=== PATIENT | female | born 1950 | race Caucasian/White ===

== ENCOUNTER 2018-05-25 08:02 | Inpatient (IN) | payer MEDICARE ==
--- NOTE | 2018-05-18 16:26 | HP ---
HISTORY AND PHYSICAL: DATE OF ADMISSION/PROCEDURE: 05/25/18 PROVIDER: Dr. Radha Bai.* (DICTATED BY JOIE OSMAN) HISTORY OF PRESENT ILLNESS: Ms. Aparicio is a 67-year-old female with bilateral hip pain, left greater than right, over the past 6 months. She had a fall in March and reports that since then the pain has been giving her 8/10 pain. She does have rheumatoid arthritis and lupus. She has pain with prolonged standing and walking more than a block. She has failed conservative management with Tylenol, antiinflammatories, and is currently taking hydroxyquinoline, methotrexate, and Prolia. She would like to pursue a left total hip arthroplasty on 05/25/[address] Radha Bai. PAST MEDICAL HISTORY: 1. Rheumatoid arthritis. 2. Lupus. 3. Hypothyroidism. 4. Hypertension. 5. Osteoarthritis. 6. Anemia. 7. Depression. 8. Anxiety. 9. Sleep apnea. PAST SURGICAL HISTORY: Partial thyroidectomy. MEDICATIONS: 1. . 2. Methotrexate 2.5 mg. 3. Multivitamin. 4. Diltiazem CD 300 mg. 5. Levothyroxine sodium 150 mcg. 6. Losartan potassium 50 mg. 7. Ropinirole 1 mg. 8. Xanax 0.5 mg. 9. Calcarb 600 with Vitamin D 400. 10. ASA 81 mg. 11. Viibryd 20 mg. 12. Vitamin D tablet 2000 units. 13. Prolia 60 mg/mL. 14. Folic acid 400 mcg. 15. Bupropion 300 mg. 16. Trazodone 50 mg. 17. Omeprazole 40 mg. ALLERGIES: PENICILLIN causes hives. FAMILY HISTORY: Maternal side heart disease, rheumatoid arthritis. Paternal side heart disease and hypertension. SOCIAL HISTORY: The patient lives with her . 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 Denies any tobacco, alcohol, or recreational drug use. She is right-hand dominant. REVIEW OF SYSTEMS: General: The patient denies any fevers, chills, or night sweats. No known anesthesia problems. HEENT: The patient denies any headaches , lightheadedness, or syncopal episodes. Cardiothoracic: The patient denies any chest pain, heart palpitations, or edema. Pulmonary: The patient denies any shortness of breath with exertion or chronic cough. GI: The patient denies any nausea, vomiting, diarrhea, or constipation. : The patient denies any nocturia, urinary frequency, or urgency. MSK: The patient admits to some mild muscle spasms. Denies any chronic or intermittent back pain or fractures. Neuro: She did admit to numbness and tingling intermittently in the toes. The patient denies any paresthesias, seizures, or stroke. Integument : The patient denies any abrasions, lesions, lumps, or open sores. Endocrine: The patient admits to hypothyroidism. PHYSICAL EXAMINATION GENERAL: The patient is alert and oriented x3, appropriate mood and affect, appropriate dress and hygiene, in no acute distress. HEENT: Normocephalic, atraumatic. Hearing and vision are grossly intact. PULMONARY: Lungs are clear to auscultation bilaterally with no wheezes, rales, or rhonchi. CARDIO: Regular rate and rhythm. Normal S1 and S2. No appreciable S3 or S4. No murmurs, rubs, or gallops. MUSCULOSKELETAL: Left lower extremity: Left hip inspection, left hip reveals no erythema or ecchymosis. Skin is warm, dry, and intact. Range of motion of the hip is 100 degrees of flexion with pain, 10 degrees of external rotation with pain, and 0 degrees of internal rotation with pain. She has negative log roll, negative straight-leg raise. She has some slight tenderness to palpation along the greater trochanter. She has 5/5 strength with dorsiflexion and plantar flexion. She is neurovascularly intact distally with 2+ dorsalis pedis pulse. IMPRESSION: Left hip osteoarthritis, end stage. PLAN: To the OR for a left total hip arthroplasty to be performed on 05/25/[address] Radha Bai. The patient will return in 10 to 14 days postoperatively for suture removal and followup. The risks and complications of surgery were reviewed with the patient and she understood these. In addition, the patient will hold her methotrexate for 2 weeks on both sides of the surgery and will continue on throughout the surgery according to the non acoustic operator. This was reviewed with her again today and she voiced understanding of it. JOIE OSMAN [id number]/[facility] #: [id number] [facility] CENTERAngelo
[~2018-05-25 08:02] MED LIST: Buffered Lidocaine 0.9% SYRIN* 5 ML/SYR SYRINGE INTRADERM ONE; Lactated Ringers 1000 ML Bag* 1,000 ML IV SCH
--- OUTSIDE RECORDS SUMMARY | 2018-05-25 08:06 | XMS REPORT | Continuity of Care Document ---
:1950 External Reference #:[id number] Author Name Zack Yan Care Team Providers Name Role Phone Angy Hirsch MD Primary Care Physician Unavailable Payers Type Date Identification Numbers Payment Provider Subscriber Policy Number: [id number] Medicare Krista Aparicio PayID: [id number] [address] [place] [address] Effective: 2015 Policy Number: [facility] Krista Aparicio [id number] PayID: [id number] [address] [place] [address] Expires: 2015 Policy Number: [id number] [facility] Jeremy Aparicio PayID: [id number] [address] [address] [place] [address] Advance Directives Description No Information Available Problems Date Description Provider Status Onset: 02/16/2012 Systemic lupus erythematosus Vin Sanchez M.D. Active Onset: 02/16/2012 Medications Mcfp (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 Vin Sanchez M.D. Active Encounter Onset: 02/16/2012 Leukopenia Vin Sanchez M.D. Active Onset: 02/16/2012 Multiple joint pain Vin Sanchez M.D. 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 ETOH Use Denies alcohol use Tobacco Use Start: Unknown Patient has never smoked Smoking Status Reviewed: 05/14/18 Patient has never smoked Exercise Type/Frequency Exercises sporadically Allergies, Adverse Reactions, Alerts Date Description Reaction Status Severity Comments 08/04/2010 Penicillin Urticaria Active Severe Medications Medication Date Status Form Strength Qnty SIG Indications Ordering Provider Hydroxychloroquine 08/19/ Active Tablets 200mg 180tab take one M32.9 Zsofia Sulfate 2016 s tablet Johnny, 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 Diltiazem CD Active Caps ER 300 90caps 1 by mouth Unknown 24HR mg once daily Levothyroxine Active Tablets 150 30tabs 1 po qd Unknown Sodium mcg Losartan Active Tablets 50m 90tabs 1-2 po qd Unknown Potassium g Ropinirole HCL Active Tablets 1mg 30tabs 4 tab po Unknown qhs Xanax Active Tablets 0.5 20tabs 1 po tid Unknown mg prn Calcarb 600/D Active Tablets 600 60tabs take 1 M85 Unknown -40 tablet by .9 0mg mouth two -Un times daily it Asa Active 81m 30units 1 po qd Unknown g Vibryd Active 20m 1 tablet Unknown g daily Vitamin D Active Capsules 200 30caps 1 by mouth Unknown 0Un every day it Prolia Active Solution 60m 60 mg sc Unknown g/m q6mon l Folic Acid Active Tablets 400 2 tablets Z79 Unknown mcg by mouth .89 every day 9 (supplement ) Bupropion HCL ER Active Tablets ER 300 Macadam, (XL) 24HR mg Angy Goss MD Trazodone HCL Active Tablets 50m 25mg at Unknown g night--1/2 tab or more as needed Omeprazole Active Capsules DR 40m 1 by mouth Unknown g every day Nabumetone 05/15/2017 - Hx Tablets 500 1 by mouth Z79 Zsofia 05/15/2017 mg twice a day .89 ADRIANA Turner 9 Nabumetone 05/15/2017 - Hx Tablets 500 1 by mouth Z79 Zsofia 08/10/2017 mg daily .89 ADRIANA Turner 9 Nabumetone 05/21/2015 - Hx Tablets 750 60tabs take one Z79 Zsofia 05/15/2017 mg tablet by .89 ADRIANA Turner mouth twice 9 a day as needed Nabumetone 02/19/2015 - Hx Tablets 750 30tabs take one Z79 Zsofia 05/21/2015 mg tablet by .89 ADRIANA Turner mouth once 9 a day Folic Acid 05/24/2013 - Hx Tablets 1[facility]tabs [facility]2016 mouth every .89 ADRIANA Turner day 9 Voltaren 09/28/2010 - Hx Gel 1% 5tubes apply to M05 [facility] 08/20/2015 affected .79 ADRIANA Turner area four times a day as needed(not using) Methotrexate 08/04/2010 - Hx Tablets 2.5 30tabs 6 tabs 1x 710 Zsofia 03/11/2014 mg per week .0 ADRIANA Turner 714.0 V58.69 Nabumetone 08/04/2010 - Hx Tablets 750mg 60tabs 1 by mouth 715.16 Krishna Johnny, 02/19/2015 twice a day ADRIANA V58.69 714.0 Plaquenil 08/04/2010 - Hx Tablets 200mg 60tabs take one M32.9 Krishna Johnny, 08/20/2015 tablet by ADRIANA mouth twice a day Z79.899 M05.79 Effexor XR - Hx Caps ER 24HR 150mg 90caps 1 po qd Unknown 02/16/2012 Seroquel - Hx Tablets 100mg 30tabs 1 po qd Unknown 02/19/2015 Iron - Hx Tablets 40mg po qd Unknown 02/25/2016 Glucosamine - Hx Capsules po bid Unknown Chondroitin 04/23/2018 Complex Fosamax - Hx Tablets 70mg 12tabs one tablet Unknown 09/09/2013 weekly Forteo - Hx Solution 600mcg/2.4 3mon 20 mcg sc Unknown 08/20/2015 ML every day Quetiapine - Hx Tablets 100mg 1/2 tablet Unknown Fumarate 11/13/2017 by mouth at bedtime Protein - Hx daily Unknown 08/11/2016 Immunizations Description No Information Available Vital Signs Date Vital Result Comment 05/14/2018 9:45am Height 65 inches 5'5" Weight 169.00 lb Heart Rate 68 /min BP Systolic 124 mmHg BP Diastolic 76 mmHg BMI (Body Mass Index) 28.1 kg/m2 04/30/2018 1:50pm Height 65 inches 5'5" Weight 168.00 lb Heart Rate 64 /min BP Systolic 114 mmHg BP Diastolic 70 mmHg Body Temperature 98.9 F Pain Level 8 BMI (Body Mass Index) 28.0 kg/m2 04/23/2018 9:11am Height 65 inches 5'5" Weight 170.00 lb Heart Rate 69 /min BP Systolic 122 mmHg BP Diastolic 78 mmHg Pain Level 8 O2 % BldC Oximetry 97 % BMI (Body Mass Index) 28.3 kg/m2 02/22/2018 8:53am Height 65 inches 5'5" Weight 167.00 lb Heart Rate 81 /min BP Systolic Sitting 132 mmHg BP Diastolic Sitting 80 mmHg O2 % BldC Oximetry 98 % BMI (Body Mass Index) 27.8 kg/m2 11/13/2017 10:25am Height 65 inches 5'5" Weight 165.00 lb Heart Rate 68 /min BP Systolic 118 mmHg BP Diastolic 74 mmHg Pain Level 6 O2 % BldC Oximetry 95 % BMI (Body Mass Index) 27.5 kg/m2 08/10/2017 10:00am Weight 165.00 lb Heart Rate 81 /min BP Systolic Sitting 121 mmHg BP Diastolic Sitting 71 mmHg Body Temperature 98.6 F Pain Level 7 lower back O2 % BldC Oximetry 96 % 05/15/2017 8:49am Weight 164.00 lb Heart Rate 68 /min BP Systolic Sitting 128 mmHg BP Diastolic Sitting 70 mmHg Respiratory Rate 14 /min Pain Level 5 02/20/2017 9:22am Weight 162.00 lb Heart Rate 66 /min BP Systolic Sitting 108 mmHg BP Diastolic Sitting 58 mmHg Pain Level 6 O2 % BldC Oximetry 95 % 11/17/2016 9:50am Weight 164.00 lb Heart Rate 63 /min BP Systolic 110 mmHg BP Diastolic 60 mmHg O2 % BldC Oximetry 98 % 08/11/2016 9:47am Weight 164.00 lb Heart Rate 74 /min BP Systolic Sitting 126 mmHg BP Diastolic Sitting 78 mmHg Respiratory Rate 15 /min Pain Level 5 O2 % BldC Oximetry 98 % 05/09/2016 9:29am Weight 166.00 lb Heart Rate 71 /min BP Systolic Sitting 142 mmHg BP Diastolic Sitting 78 mmHg Pain Level 2 hands O2 % BldC Oximetry 98 % 02/25/2016 10:39am Height 65 inches 5'5" Weight 168.00 lb Heart Rate 62 /min BP Systolic Sitting 120 mmHg BP Diastolic Sitting 70 mmHg Pain Level 5 BMI (Body Mass Index) 28.0 kg/m2 11/23/2015 9:22am Height 65 inches 5'5" Weight 163.00 lb Heart Rate 76 /min BP Systolic Sitting 138 mmHg BP Diastolic Sitting 82 mmHg Pain Level 5 hands BMI (Body Mass Index) 27.1 kg/m2 08/20/2015 10:34am Height 65 inches 5'5" Weight 166.00 lb Heart Rate 63 /min BP Systolic 106 mmHg BP Diastolic 60 mmHg Body Temperature 97.8 F O2 % BldC Oximetry 97 % BMI (Body Mass Index) 27.6 kg/m2 05/21/2015 10:40am Height 65 inches 5'5" Weight 167.12 lb Heart Rate 82 /min Respiratory Rate 14 /min Body Temperature 97.9 F Pain Level 5 BMI (Body Mass Index) 27.8 kg/m2 02/19/2015 9:20am Height 65 inches 5'5" Weight 164.12 lb Heart Rate 80 /min BP Systolic Sitting 130 mmHg BP Diastolic Sitting 90 mmHg Respiratory Rate 14 /min Pain Level 4 BMI (Body Mass Index) 27.3 kg/m2 11/18/2014 10:16am Height 65 inches 5'5" Weight 162.50 lb Heart Rate 72 /min BP Systolic Sitting 140 mmHg BP Diastolic Sitting 90 mmHg Respiratory Rate 14 /min Pain Level 4 BMI (Body Mass Index) 27.0 kg/m2 08/18/2014 9:51am Height 65 inches 5'5" Weight 162.00 lb Heart Rate 72 /min BP Systolic Sitting 148 mmHg BP Diastolic Sitting 80 mmHg Pain Level 2 BMI (Body Mass Index) 27.0 kg/m2 06/12/2014 9:51am Height 65 inches 5'5" Weight 163.75 lb Heart Rate 78 /min BP Systolic Sitting 112 mmHg BP Diastolic Sitting 70 mmHg Pain Level 2 BMI (Body Mass Index) 27.2 kg/m2 03/11/2014 9:22am Height 65 inches 5'5" Weight 162.00 lb Heart Rate 86 /min BP Systolic Sitting 120 mmHg BP Diastolic Sitting 70 mmHg Pain Level 4 BMI (Body Mass Index) 27.0 kg/m2 12/09/2013 9:25am Height 65 inches 5'5" Weight 167.50 lb Heart Rate 82 /min BP Systolic Sitting 112 mmHg BP Diastolic Sitting 64 mmHg Pain Level 2 BMI (Body Mass Index) 27.9 kg/m2 09/09/2013 10:37am Height 65 inches 5'5" Weight 164.25 lb Heart Rate 86 /min BP Systolic Sitting 100 mmHg BP Diastolic Sitting 68 mmHg BMI (Body Mass Index) 27.3 kg/m2 05/24/2013 10:50am Height 65 inches 5'5" Weight 164.25 lb Heart Rate 78 /min BP Systolic Sitting 118 mmHg BP Diastolic Sitting 76 mmHg BMI (Body Mass Index) 27.3 kg/m2 02/22/2013 1:06pm Height 65 inches 5'5" Weight 167.00 lb Heart Rate 77 /min BP Systolic Sitting 110 mmHg BP Diastolic Sitting 62 mmHg BMI (Body Mass Index) 27.8 kg/m2 11/21/2012 2:46pm Height 65 inches 5'5" Weight 160.00 lb Heart Rate 81 /min BP Systolic Sitting 117 mmHg BP Diastolic Sitting 66 mmHg BMI (Body Mass Index) 26.6 kg/m2 08/17/2012 8:55am Height 65 inches 5'5" Weight 158.00 lb Heart Rate 74 /min BP Systolic Sitting 127 mmHg BP Diastolic Sitting 72 mmHg BMI (Body Mass Index) 26.3 kg/m2 05/17/2012 9:12am Height 65 inches 5'5" Weight 160.00 lb Heart Rate 74 /min BP Systolic Sitting 126 mmHg BP Diastolic Sitting 67 mmHg BMI (Body Mass Index) 26.6 kg/m2 02/16/2012 9:34am Height 65 inches 5'5" Weight 162.00 lb Heart Rate 78 /min BP Systolic Sitting 126 mmHg BP Diastolic Sitting 78 mmHg BMI (Body Mass Index) 27.0 kg/m2 11/29/2011 10:16am Height 65 inches 5'5" Weight 160.00 lb Heart Rate 79 /min BP Systolic Sitting 124 mmHg BP Diastolic Sitting 71 mmHg BMI (Body Mass Index) 26.6 kg/m2 09/16/2011 11:21am Height 65 inches 5'5" Heart Rate 76 /min BP Systolic Sitting 120 mmHg BP Diastolic Sitting 71 mmHg 07/06/2011 11:00am Height 65 inches 5'5" Weight 167.00 lb Heart Rate 78 /min BP Systolic Sitting 128 mmHg BP Diastolic Sitting 82 mmHg BMI (Body Mass Index) 27.8 kg/m2 04/22/2011 1:26pm Weight 167.00 lb Heart Rate 68 /min BP Systolic Sitting 115 mmHg BP Diastolic Sitting 65 mmHg 02/03/2011 9:29am Weight 163.00 lb Heart Rate 80 /min BP Systolic 112 mmHg BP Diastolic 74 mmHg 11/25/2010 9:15am Weight 164.00 lb Heart Rate 78 /min BP Systolic 128 mmHg BP Diastolic 80 mmHg 09/28/2010 11:03am Height 65.5 inches 5'5.50" Weight 166.00 lb Heart Rate 68 /min BP Systolic 120 mmHg BP Diastolic 76 mmHg BMI (Body Mass Index) 27.2 kg/m2 08/04/2010 2:16pm Height 65.5 inches 5'5.50" Weight 165.00 lb Heart Rate 80 /min BP Systolic 108 mmHg BP Diastolic 70 mmHg BMI (Body Mass Index) 27.0 kg/m2 Results Description No Information Available Procedures Description No Information Available Encounters Type Date Location Provider Dx Diagnosis Office Visit 04/30/2018 Orthopedic Services Radha Bai, M05.79 Rheu arthritis w 1:30p Of [facility] rheu factor mult site w/o org/sys involv M32.9 Systemic lupus erythematosus, unspecified M25.552 Pain in left hip M16.12 Unilateral primary osteoarthritis, left hip M25.551 Pain in right hip Office Visit 04/23/2018 9:30a Rheumatology Krishna Turner, M05.79 Rheu arthritis Services [facility] w rheu factor mult site w/o org/sys involv M32.9 Systemic lupus erythematosus, unspecified M35.00 Sicca syndrome, unspecified F41.9 Anxiety disorder, unspecified Z79.899 Other manager long term care (current) drug therapy M85.9 Disorder of bone density and structure, unspecified M16.0 Bilateral primary osteoarthritis of hip R93.5 Abn findings on dx imaging of abd regions, inc retroperiton Office Visit 02/22/2018 9:00a Rheumatology Zsofia M05.79 Rheu arthritis Services Of [facility] rheu factor [employer] mult site w/o org/sys involv M32.9 Systemic lupus erythematosus, unspecified M35.00 Sicca syndrome, unspecified F41.9 Anxiety disorder, unspecified Z79.899 Other retirement (current) drug therapy Office Visit 11/13/2017 10:30a Rheumatology Zsofia M05.79 Rheu arthritis Services [facility] rheu factor [facility] mult site w/o org/sys involv M32.9 Systemic lupus erythematosus, unspecified M35.00 Sicca syndrome, unspecified M85.9 Disorder of bone density and structure, unspecified Z79.899 Other retirement (current) drug therapy Office Visit 08/10/2017 10:00a Rheumatology Zsofia M05.79 Rheu arthritis Services [facility] rheu factor [facility] mult site w/o org/sys involv M32.9 Systemic lupus erythematosus, unspecified M35.00 Sicca syndrome, unspecified Z79.899 Other retirement (current) drug therapy M85.9 Disorder of bone density and structure, unspecified Z23 Encounter for immunization Office Visit 05/15/2017 9:00a Rheumatology Zsofia M05.79 Rheu arthritis Services [facility] rheu factor [employer] mult site w/o org/sys involv M32.9 Systemic lupus erythematosus, unspecified M35.00 Sicca syndrome, unspecified M85.9 Disorder of bone density and structure, unspecified Z79.899 Other retirement (current) drug therapy Office Visit 02/20/2017 9:30a Rheumatology Zsofia M05.79 Rheu arthritis Services [facility] rheu factor [employer] mult site w/o org/sys involv M32.9 Systemic lupus erythematosus, unspecified M35.00 Sicca syndrome, unspecified M85.9 Disorder of bone density and structure, unspecified Z79.899 Other manager long term care (current) drug therapy F41.9 Anxiety disorder, unspecified Office Visit 11/17/2016 9:30a Rheumatology Zsofia M05.79 Rheu arthritis [facility]o org/sys involv M32.9 Systemic lupus erythematosus, unspecified Z79.899 Other retirement (current) drug therapy M35.00 Sicca syndrome, unspecified Office Visit 08/11/2016 10:00a Rheumatology Zsofia M05.79 Rheu arthritis [facility]/o org/sys involv M32.9 Systemic lupus erythematosus, unspecified M85.9 Disorder of bone density and structure, unspecified Z79.899 Other retirement (current) drug therapy Office Visit 05/09/2016 9:30a Rheumatology Zsofia M05.79 [facility] w/o org/sys involv M32.9 Systemic lupus erythematosus, unspecified M35.00 Sicca syndrome, unspecified M85.9 Disorder of bone density and structure, unspecified Z79.899 Other retirement (current) drug therapy R21 Rash and other nonspecific skin eruption Office Visit 02/25/2016 10:30a Rheumatology Zsofia M05.79 [facility] w/o org/sys involv M32.9 Systemic lupus erythematosus, unspecified M35.00 Sicca syndrome, unspecified M85.9 Disorder of bone density and structure, unspecified Z79.899 Other retirement (current) drug therapy E66.9 Obesity, unspecified Office Visit 11/23/2015 9:30a Rheumatology Zsofia M05.79 Rheu arthritis [facility] w/o org/sys involv M32.9 Systemic lupus erythematosus, unspecified M85.9 Disorder of bone density and structure, unspecified M35.00 Sicca syndrome, unspecified Z79.899 Other retirement (current) drug therapy Office Visit 08/20/2015 10:30a Rheumatology Krishna M05.79 Rheu arthritis Services Of ADRIANA Turner w rheu factor [facility] site w/o org/sys involv M32.9 Systemic lupus erythematosus, unspecified Z79.899 Other retirement (current) drug therapy M85.9 Disorder of bone density and structure, unspecified Office Visit 05/21/2015 10:30a Rheumatology Krishna Turner M05.79 Rheu arthritis Services [facility]o org/sys involv M32.9 Systemic lupus erythematosus, unspecified M85.9 Disorder of bone density and structure, unspecified M35.00 Sicca syndrome, unspecified Z79.899 Other manager long term care (current) drug therapy M85.89 Oth disrd of bone density and structure, multiple sites Office Visit 02/19/2015 9:30a Rheumatology Krishna Turner 714.0 Rheumatoid Services [facility] Arthritis 710.0 Lupus Erythematosus Systemic 733.90 Bone & Cartilage Disorder Unspec V58.69 Medications 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 Office Visit 11/18/2014 10:30a Rheumatology Krishna Turner 714.0 Rheumatoid Services [facility] Arthritis 710.0 Lupus Erythematosus Systemic 715.16 Osteoarthrosis Localized Prim Lower Leg 733.00 Osteoporosis Unspec V58.69 Medications 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 Office Visit 08/18/2014 10:00a Rheumatology Krishna Turner 714.0 Rheumatoid [facility] Arthritis 710.0 Lupus Erythematosus Systemic 715.16 Osteoarthrosis Localized Prim Lower Leg 733.00 Osteoporosis Unspec V58.69 Medications 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 733.00 Osteoporosis Unspec Office Visit 09/09/2013 Rheumatology Zsofia 710.0 Lupus Erythematosus 10:30a Services Of ADRIANA Cisneros Systemic 714.0 Rheumatoid Arthritis V58.69 Medications 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 Office Visit 05/24/2013 Rheumatology Zsofia 710.0 Lupus Erythematosus 11:00a Services Of ADRIANA Cisneros Systemic 714.0 Rheumatoid Arthritis V58.69 Medications 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 443.0 Raynauds Syndrome 288.50 Leukocytopenia, Unspecified Office Visit 02/22/2013 Rheumatology Zsofia 710.0 Lupus Erythematosus 1:00p Services Of ADRIANA Cisneros Systemic 715.16 Osteoarthrosis Localized Prim Lower Leg 288.50 Leukocytopenia, Unspecified 714.0 Rheumatoid Arthritis V58.69 Medications 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 Office Visit 11/21/2012 Rheumatology Zsofia 710.0 Lupus Erythematosus 2:40p Services Of ADRIANA Cisneros Systemic 715.16 Osteoarthrosis Localized Prim Lower Leg V58.69 Medications 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 721.3 Spondylosis Lumbar W/O Myelopathy Office Visit 08/17/2012 Rheumatology Zsofia 710.0 Lupus Erythematosus 9:00a Services Of ADRIANA Cisneros Systemic 715.16 Osteoarthrosis Localized Prim Lower Leg V58.69 Medications Mcfp (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 Encounter Office Visit 05/17/2012 Rheumatology Vin Sanchez, 710.0 Lupus Erythematosus 9:20a Services Of Mica Guerrero Systemic V58.69 Medications 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 Office Visit 02/16/2012 Rheumatology Vin Sanchez, 710.0 Lupus Erythematosus 9:40a Services Of Mica Guerrero Systemic V58.69 Medications 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 288.50 Leukocytopenia, Unspecified 719.49 Pain Joint Multiple Sites Office Visit 11/29/2011 Rheumatology Vin Sanchez, 710.0 Lupus Erythematosus 10:20a Services Of Mica Guerrero Systemic V58.69 Medications 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 Office Visit 09/16/2011 Rheumatology Vin Endo, 710.0 Lupus Erythematosus 11:20a Services Of Mica Guerrero Systemic V58.69 Medications Mcfp (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 Encounter 719.49 Pain Joint Multiple Sites Office Visit 07/06/2011 Rheumatology Vin Endo, 710.0 Lupus Erythematosus 11:00a Services Of Mica Guerrero Systemic V58.69 Medications Mcfp (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 Encounter 814.00 FX Carpal Bone Closed Unspec Office Visit 04/22/2011 Rheumatology Vin Endo, 710.0 Lupus Erythematosus 1:40p Services Of Mica Guerrero Systemic V58.69 Medications Mcfp (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 Encounter 719.49 Pain Joint Multiple Sites Office Visit 02/03/2011 Rheumatology Vin Sanchez, 710.0 Lupus Erythematosus 9:20a Services Of Mica Guerrero Systemic 719.40 Pain Joint Site Unspec Office Visit 11/25/2010 Rheumatology Vin Sanchez, 710.0 Lupus Erythematosus 9:20a Services Of Mica Guerrero Systemic V58.69 Medications 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 719.40 Pain Joint Site Unspec 288.50 Leukocytopenia, Unspecified Office Visit 09/28/2010 Rheumatology Vin Sanchez, 710.0 Lupus Erythematosus 11:00a Services Of Mica Guerrero Systemic 715.16 Osteoarthrosis Localized Prim Lower Leg V58.69 Medications 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 Office Visit 08/04/2010 Rheumatology Vin Endo, 710.0 Lupus Erythematosus 2:00p Services Of Mica Guerrero Systemic V58.69 Medications Mcfp (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 Encounter Plan of Treatment Future Appointment(s):05/25/2018 11:30 am - Radha Bai M.D. at [facility]/26/2018 10:30 am - ADRIANA Long at Rheumatology Services [facility]
--- OUTSIDE RECORDS SUMMARY | 2018-05-25 08:06 | XMS REPORT | Continuity of Care Document ---
:1950 External Reference #:[id number] Author Name Chau Irma Care Team Providers Name Role Phone Angy Hirsch MD Primary Care Physician Unavailable Payers Type Date Identification Numbers Payment Provider Subscriber Policy Number: [id number] Medicare Krista Aparicio PayID: [id number] [address] [place] [address] Effective: 2015 Policy Number: [facility] Krista Aparicio [id number] PayID: [id number] [address] [place] [address] Expires: 2015 Policy Number: [id number] [facility] Jeremy Aparicio PayID: [id number] [address] [address] [place] [address] Advance Directives Description No Information Available Problems Date Description Provider Status Onset: 02/16/2012 Systemic lupus erythematosus Vin Sanchez M.D. Active Onset: 02/16/2012 Medications Residential (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 Vin Sanchez M.D. 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 ETOH Use Denies alcohol use [...] Sulfate 2016 s tablet Johnny, by mouth PROPOSAL EDITOR twice a day Z79.899 M05.79 Methotrexate 03/11/2014 Active Tablets 2.5mg 48tabs 4 tbs by M05.79 Zsofia Johnny, mouth every [employer] week Z79.899 Multivitamins 08/04/2010 Active Tablets 30tabs [...] Hx Tablets 1mg 90tabs 1 tab by Z Zsofia 05/09/2016 mouth every .89 ADRIANA Turner day 9 Voltaren 09/28/2010 - Hx Gel 1% [facility]es [facility] affected .79 ADRIANA Turner area four [...] Hx Tablets 200mg 60tabs take one M32.9 Elijahofimariya Mcphersonk, 08/20/2015 tablet by ADRIANA mouth twice a [...] BMI (Body Mass Index) 27.0 kg/m2 Results Test Date Facility Test Result H/L Range Note Urinalysis Profile 05/14/2018 [facility] [place] [address] [phone] Urine Appearance Clear Urine Specific [place] 1.021 N 1.010-1.030 Urine pH 5.0 N 5-9 Urine Urobilinogen Negative Negative Urine Ketones Negative Negative Urine Protein Negative Negative Urine Leukocytes Negative Negative Urine Blood Negative Negative * * Abnormal Negative 1 Urine Nitrite Negative Negative Urine Bilirubin Negative Negative Urine Glucose Negative Negative Inr/Protime 05/14/2018 [facility] Inr 0.94 N 0.77-1.02 [place] [address] [phone] Laboratory test 05/14/2018 [facility] Partial 32.5 seconds N 26.0-36.[address] [address] PTT [phone] Type & Screen 05/14/2018 [facility] Patient O Negative [address] [place] [address] [phone] Antibody Screen NEGATIVE 1 *Ascorbic acid is present which may interfere with detection of blood. Procedures Description No Information Available Encounters Type Date Location Provider Dx Diagnosis Office Visit 04/30/2018 [facility] Radha Bai M05.79 Rheu arthritis w 1:30p Of [facility] rheu factor mult site w/o org/sys involv M32.9 Systemic lupus erythematosus, unspecified M25.552 Pain in left hip M16.12 Unilateral primary osteoarthritis, left hip M25.551 Pain in right hip Office Visit 04/23/2018 9:30a Rheumatology Andreea Long5.79 Rheu arthritis Services Of [facility] rheu factor mult site w/o org/sys involv M32.9 Systemic lupus erythematosus, unspecified M35.00 Sicca syndrome, unspecified F41.9 Anxiety disorder, unspecified Z79.899 Other group home (current) drug therapy M85.9 Disorder of bone density and structure, unspecified M16.0 Bilateral primary osteoarthritis of hip R93.5 Abn findings on dx imaging of abd regions, inc retroperiton Office Visit 02/22/2018 9:00a Rheumatology Krishna M05.79 [facility] site w/o org/sys involv M32.9 Systemic lupus erythematosus, unspecified M35.00 Sicca syndrome, unspecified F41.9 Anxiety disorder, unspecified Z79.899 Other emt intermediate (current) drug therapy Office Visit 11/13/2017 10:30a Rheumatology Krishna M05.79 Rheu arthritis [facility] w/o org/sys involv M32.9 Systemic lupus erythematosus, unspecified M35.00 Sicca syndrome, unspecified M85.9 Disorder of bone density and structure, unspecified Z79.899 Other emt intermediate (current) drug therapy Office Visit 08/10/2017 10:00a Rheumatology Zsofia M05.79 Rheu arthritis Services Of [facility] rheu factor [employer] mult site w/o org/sys involv M32.9 Systemic lupus erythematosus, unspecified M35.00 Sicca syndrome, unspecified Z79.899 Other emt intermediate (current) drug therapy M85.9 Disorder of bone density and structure, unspecified Z23 Encounter for immunization Office Visit 05/15/2017 9:00a Rheumatology Zsofia M05.79 Rheu arthritis Services Of [facility] rheu factor [employer] mult site w/o org/sys involv M32.9 Systemic lupus erythematosus, unspecified M35.00 Sicca syndrome, unspecified M85.9 Disorder of bone density and structure, unspecified Z79.899 Other emt intermediate (current) drug therapy Office Visit 02/20/2017 9:30a Rheumatology Zsofia M05.79 Rheu arthritis Services Of [facility] rheu factor [employer] mult site w/o org/sys involv M32.9 Systemic lupus erythematosus, unspecified M35.00 Sicca syndrome, unspecified M85.9 Disorder of bone density and structure, unspecified Z79.899 Other emt intermediate (current) drug therapy F41.9 Anxiety disorder, unspecified Office Visit 11/17/2016 9:30a Rheumatology Zsofia M05.79 Rheu arthritis Services Of [facility] rheu factor [employer] mult site w/o org/sys involv M32.9 Systemic lupus erythematosus, unspecified Z79.899 Other group home (current) drug therapy M35.00 Sicca syndrome, unspecified Office Visit 08/11/2016 10:00a Rheumatology Zsofia M05.79 Rheu arthritis Services Of [facility] rheu factor [employer] mult site w/o org/sys involv M32.9 Systemic lupus erythematosus, unspecified M85.9 Disorder of bone density and structure, unspecified Z79.899 Other emt intermediate (current) drug therapy Office Visit 05/09/2016 9:30a Rheumatology Zsofia M05.79 Rheu arthritis Services Of [facility] rheu factor [employer] mult site w/o org/sys involv M32.9 Systemic lupus erythematosus, unspecified M35.00 Sicca syndrome, unspecified M85.9 Disorder of bone density and structure, unspecified Z79.899 Other emt intermediate (current) drug therapy R21 Rash and other nonspecific skin eruption Office Visit 02/25/2016 10:30a Rheumatology Krishna M05.79 [facility] w/o org/sys involv M32.9 Systemic lupus erythematosus, unspecified M35.00 Sicca syndrome, unspecified M85.9 Disorder of bone density and structure, unspecified Z79.899 Other emt intermediate (current) drug therapy E66.9 Obesity, unspecified Office Visit 11/23/2015 9:30a Rheumatology Krishna M05.79 [facility] w/o org/sys involv M32.9 Systemic lupus erythematosus, unspecified M85.9 Disorder of bone density and structure, unspecified M35.00 Sicca syndrome, unspecified Z79.899 Other emt intermediate (current) drug therapy Office Visit 08/20/2015 10:30a Rheumatology Krishna M05.79 Rheu arthritis Services Of [facility] w/o org/sys involv M32.9 Systemic lupus erythematosus, unspecified Z79.899 Other group home (current) drug therapy M85.9 Disorder of bone density and structure, unspecified Office Visit 05/21/2015 10:30a Rheumatology Krishna Turner, M05.79 [facility] w/o org/sys involv M32.9 Systemic lupus erythematosus, unspecified M85.9 Disorder of bone density and structure, unspecified M35.00 Sicca syndrome, unspecified Z79.899 Other emt intermediate (current) drug therapy M85.89 Oth disrd of bone density and structure, multiple sites Office Visit 02/19/2015 9:30a Rheumatology Krishna Turner, 714.0 Rheumatoid Services Of [facility] Arthritis 710.0 Lupus Erythematosus Systemic 733.90 Bone & Cartilage Disorder Unspec V58.69 Medications [facility] (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 Encounter Office Visit 11/18/2014 10:30a [facility], 714.0 Rheumatoid [facility] Of [facility] Arthritis 710.0 Lupus Erythematosus Systemic 715.16 Osteoarthrosis Localized Prim Lower Leg 733.00 Osteoporosis Unspec V58.69 Medications Residential (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 Encounter Office Visit 08/18/2014 10:00a [facility], 714.0 Rheumatoid Services Of [facility] Arthritis 710.0 Lupus Erythematosus Systemic 715.16 Osteoarthrosis Localized Prim Lower Leg 733.00 Osteoporosis Unspec V58.69 Medications [facility] (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 Encounter Office Visit 06/12/2014 10:00a [facility], 714.0 Rheumatoid Services Of [facility] Arthritis 710.0 Lupus Erythematosus Systemic 715.16 Osteoarthrosis Localized Prim Lower Leg 733.00 Osteoporosis Unspec V58.69 Medications [facility] (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 Encounter Office Visit 03/11/2014 Rheumatology Elijahofia 710.0 Lupus Erythematosus 9:30a Services Of [facility] ADRIANA Turner Systemic 714.0 Rheumatoid Arthritis 721.3 Spondylosis Lumbar W/O Myelopathy V58.69 Medications Residential (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 Encounter 728.71 Fibromatosis Plantar Fascia Office Visit 12/09/2013 Rheumatology Zsofia 710.0 Lupus Erythematosus 9:30a Services Of [facility] LITTLE TurnerP Systemic 714.0 Rheumatoid Arthritis 715.16 Osteoarthrosis Localized Prim Lower Leg V58.69 Medications [facility] (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 Encounter 733.00 Osteoporosis Unspec Office Visit 09/09/2013 Rheumatology Elijahofia 710.0 Lupus Erythematosus 10:30a Services Of [facility] ADRIANA Turner Systemic 714.0 Rheumatoid Arthritis V58.69 Medications [facility] Officer (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 Encounter Office Visit 05/24/2013 Rheumatology Zsofia 710.0 Lupus Erythematosus 11:00a Services Of [facility] LITTLE TurnerP Systemic 714.0 Rheumatoid Arthritis V58.69 Medications Residential (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 Encounter 443.0 Raynauds Syndrome 288.50 Leukocytopenia, Unspecified Office Visit 02/22/2013 Rheumatology Zsofia 710.0 Lupus Erythematosus 1:00p Services Of [facility] LITTLE TurnerP Systemic 715.16 Osteoarthrosis Localized Prim Lower Leg 288.50 Leukocytopenia, Unspecified 714.0 Rheumatoid Arthritis V58.69 Medications Residential (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 Encounter Office Visit 11/21/2012 Rheumatology Krishna 710.0 Lupus Erythematosus 2:40p Services Of ADRIANA Cisneros Systemic 715.16 Osteoarthrosis Localized Prim Lower Leg V58.69 Medications [facility] Officer (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 Encounter 721.3 Spondylosis Lumbar W/O Myelopathy Office Visit 08/17/2012 Rheumatology Krishna 710.0 Lupus Erythematosus 9:00a Services Of ADRIANA Cisneros Systemic 715.16 Osteoarthrosis Localized Prim Lower Leg V58.69 Medications Residential (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 Encounter Office Visit 05/17/2012 Rheumatology Vin Sanchez, 710.0 Lupus Erythematosus 9:20a Services Of Mica Guerrero Systemic V58.69 Medications Residential (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 Encounter Office Visit 02/16/2012 Rheumatology Vin Sanchez, 710.0 Lupus Erythematosus 9:40a Services Of Mica Guerrero Systemic V58.69 Medications Residential (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 Encounter 288.50 Leukocytopenia, Unspecified 719.49 Pain Joint Multiple Sites Office Visit 11/29/2011 Rheumatology Vin Sanchez, 710.0 Lupus Erythematosus 10:20a Services Of Mica Guerrero Systemic V58.69 Medications Residential (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 Encounter Office Visit 09/16/2011 Rheumatology Vin Sanchez, 710.0 Lupus Erythematosus 11:20a Services Of Mica Guerrero Systemic V58.69 Medications [facility] Officer (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 Encounter 719.49 Pain Joint Multiple Sites Office Visit 07/06/2011 Rheumatology Vin Sanchez, 710.0 Lupus Erythematosus 11:00a Services Of Mica Guerrero Systemic V58.69 Medications [facility] Officer (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 Encounter 814.00 FX Carpal Bone Closed Unspec Office Visit 04/22/2011 Rheumatology Vin Sanchez, 710.0 Lupus Erythematosus 1:40p Services Of Mica Guerrero Systemic V58.69 Medications Residential (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 Encounter 719.49 Pain Joint Multiple Sites Office Visit 02/03/2011 Rheumatology Vin Sanchez, 710.0 Lupus Erythematosus 9:20a Services Of Mica Guerrero Systemic 719.40 Pain Joint Site Unspec Office Visit 11/25/2010 Rheumatology Vin Sanchez, 710.0 Lupus Erythematosus 9:20a Services Of Mica Guerrero Systemic V58.69 Medications [facility] Officer (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 Encounter 719.40 Pain Joint Site Unspec 288.50 Leukocytopenia, Unspecified Office Visit 09/28/2010 Rheumatology Vin Endo, 710.0 Lupus Erythematosus 11:00a Services Of Mica Guerrero Systemic 715.16 Osteoarthrosis Localized Prim Lower Leg V58.69 Medications Residential (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 Encounter Office Visit 08/04/2010 Rheumatology Vin Endo, 710.0 Lupus Erythematosus 2:00p Services Of Mica Guerrero Systemic V58.69 Medications [facility] Officer (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 Encounter Plan of Treatment Future Appointment(s):05/25/2018 11:30 am - JOIE Xie [facility]06/06/2018 9:00 am - Radha Bai M.D. at [facility]05/25/2018 11:30 am - Radha Bai M.[facility]. [facility]07/26/2018 10:30 am - ADRIANA Long at [facility]
--- OUTSIDE RECORDS SUMMARY | 2018-05-25 08:07 | XMS REPORT | Continuity of Care Document ---
:1950 External Reference #:[id number] Author Name Shamaayden Zack Care Team Providers Name Role Phone Angy Hirsch MD Primary Care Physician Unavailable Payers Type Date Identification Numbers Payment Provider Subscriber Policy Number: [id number] Medicare Krista Aparicio PayID: [id number] [address] [place] [address] Effective: 2015 Policy Number: [facility] Krista Aparicio [id number] PayID: [id number] [address] [place] [address] Expires: 2015 Policy Number: [id number] [facility] Jeremy Aparicio PayID: [id number] [address] [address] [place] [address] Advance Directives Description No Information Available Problems Date Description Provider Status Onset: 02/16/2012 Systemic lupus erythematosus Vin Sanchez M.D. Active Onset: 02/16/2012 Medications Manager Terminal (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 Vin Sanchez M.D. Active Encounter Onset: 02/16/2012 Leukopenia Vin Sanchez M.D. Active Onset: 02/16/2012 Multiple joint pain Vin Sanchez M.D. Active Onset: 04/30/2018 Localized, primary osteoarthritis of the Radha Bai M.D. 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 ETOH Use Denies alcohol use Tobacco Use Start: Unknown Patient has never smoked Smoking Status Reviewed: 04/30/18 Patient has never smoked Exercise Type/Frequency Exercises sporadically Allergies, Adverse Reactions, Alerts Date Description Reaction Status Severity Comments 08/04/2010 Penicillin Urticaria Active Severe Medications Medication Date Status Form Strength Qnty SIG Indications Ordering Provider Hydroxychloroquine 08/19/ Active Tablets 200mg 180tab take one M32.9 Zsofia Sulfate 2016 s tablet Johnny, by mouth [employer]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 a 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 Z79.899 M05.79 Methotrexate 03/11/2014 Active Tablets 2.5mg 48tabs 4 tbs by M05.79 Zsofia Johnny, mouth every SERICULTURE TEACHER week Z79.899 Multivitamins 08/04/2010 Active Tablets 30tabs [...] ) Bupropion HCL ER Active Tablets ER 150 Macadam, (XL) 24HR mg Angy Goss MD Trazodone HCL Active Tablets 50m 25mg at Unknown g night--1/2 tab or more as needed Nabumetone 05/15/2017 - Hx Tablets 500 1 by mouth Z79 Zsofia 05/15/2017 mg twice a day .89 Johnny, SERICULTURE TEACHER 9 Nabumetone 05/15/2017 - Hx Tablets 500 [...] Hx Tablets 1mg 90tabs 1 tab by Z79 Zsofia 05/09/2016 mouth every .89 ADRIANA Turner day 9 Voltaren 09/28/2010 - Hx Gel 1% 5tubes apply to M05 Zsofia 08/20/2015 affected .79 ADRIANA Turner area four times a day as needed(not using) Methotrexate 08/04/2010 - Hx Tablets 2.5 30tabs 6 tabs 1x 710 Zsofia 03/11/2014 mg per week .0 ADRIANA Turner 714.0 V58.69 Nabumetone 08/04/2010 - Hx Tablets 750mg 60tabs 1 by mouth 715.16 Elijahofimariya Johnny, 02/19/2015 twice a day ADRIANA V58.69 714.0 Plaquenil 08/04/2010 - Hx Tablets 200mg 60tabs take one M32.9 Zsofimariya Mcphersonk, 08/20/2015 tablet by ADRIANA mouth twice [...] Available Vital Signs Date Vital Result Comment 04/30/2018 1:50pm Height 65 inches 5'5" Weight [...] Date Location Provider Dx Diagnosis Office Visit 02/22/2018 Rheumatology Krishna Turner, M05.79 Rheu arthritis w 9:00a Services Of [facility] rheu factor [facility] w/o org/sys involv M32.9 Systemic lupus erythematosus, unspecified M35.00 Sicca syndrome, unspecified F41.9 Anxiety disorder, unspecified Z79.899 Other halfway (current) drug therapy Office Visit 11/13/2017 10:30a Rheumatology Elijahofia M05.79 [facility] w[facility]o org/sys involv M32.9 Systemic lupus erythematosus, unspecified M35.00 Sicca syndrome, unspecified M85.9 Disorder of bone density and structure, unspecified Z79.899 Other halfway (current) drug therapy Office Visit 08/10/2017 10:00a Rheumatology Elijahofimariya M05.79 [facility] org/sys involv M32.9 Systemic lupus erythematosus, unspecified M35.00 Sicca syndrome, unspecified Z79.899 Other halfway (current) drug therapy M85.9 Disorder of bone density and structure, unspecified Z23 Encounter for immunization Office Visit 05/15/2017 9:00a Rheumatology Zsofia M05.79 Rheu arthritis Services Of [facility] rheu factor [facility] site w/o org/sys involv M32.9 Systemic lupus erythematosus, unspecified M35.00 Sicca syndrome, unspecified M85.9 Disorder of bone density and structure, unspecified Z79.899 Other halfway (current) drug therapy Office Visit 02/20/2017 9:30a Rheumatology Zsofia M05.79 Rheu arthritis [facility] rheu factor [facility] site w/o org/sys involv M32.9 Systemic lupus erythematosus, unspecified M35.00 Sicca syndrome, unspecified M85.9 Disorder of bone density and structure, unspecified Z79.899 Other rn long term care (current) drug therapy F41.9 Anxiety disorder, unspecified Office Visit 11/17/2016 9:30a Rheumatology Zsofia M05.79 Rheu arthritis [facility] rheu factor [facility] site w/o org/sys involv M32.9 Systemic lupus erythematosus, unspecified Z79.899 Other rn long term care (current) drug therapy M35.00 Sicca syndrome, unspecified Office Visit 08/11/2016 10:00a Rheumatology Zsofia M05.79 Rheu arthritis [facility] rheu factor [facility] mult site w/o org/sys involv M32.9 Systemic lupus erythematosus, unspecified M85.9 Disorder of bone density and structure, unspecified Z79.899 Other halfway (current) drug therapy Office Visit 05/09/2016 9:30a Rheumatology Zsofia M05.79 Rheu arthritis [facility] rheu factor [facility] site w/o org/sys involv M32.9 Systemic lupus erythematosus, unspecified M35.00 Sicca syndrome, unspecified M85.9 Disorder of bone density and structure, unspecified Z79.899 Other rn long term care (current) drug therapy R21 Rash and other nonspecific skin eruption Office Visit 02/25/2016 10:30a Rheumatology Elijahofia M05.79 [facility] site w/o org/sys involv M32.9 Systemic lupus erythematosus, unspecified M35.00 Sicca syndrome, unspecified M85.9 Disorder of bone density and structure, unspecified Z79.899 Other halfway (current) drug therapy E66.9 Obesity, unspecified Office Visit 11/23/2015 9:30a Rheumatology Elijahofia M05.79 [facility] site w/o org/sys involv M32.9 Systemic lupus erythematosus, unspecified M85.9 Disorder of bone density and structure, unspecified M35.00 Sicca syndrome, unspecified Z79.899 Other rn long term care (current) drug therapy Office Visit 08/20/2015 10:30a Rheumatology Elijahofia M05.79 [facility] site w/o org/sys involv M32.9 Systemic lupus erythematosus, unspecified Z79.899 Other halfway (current) drug therapy M85.9 Disorder of bone density and structure, unspecified Office Visit 05/21/2015 10:30a Rheumatology Krishna Turner, M05.79 Rheu arthritis Services Of [facility] site w/o org/sys involv M32.9 Systemic lupus erythematosus, unspecified M85.9 Disorder of bone density and structure, unspecified M35.00 Sicca syndrome, unspecified Z79.899 Other halfway (current) drug therapy M85.89 Oth disrd of bone density and structure, multiple sites Office Visit 02/19/2015 9:30a Rheumatology Krishna Turner, 714.0 Rheumatoid Services Of [facility] Arthritis 710.0 Lupus Erythematosus Systemic 733.90 Bone & Cartilage Disorder Unspec V58.69 Medications Manager Terminal (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 Encounter Office Visit 11/18/2014 10:30a Rheumatology Krishna Turner, 714.0 Rheumatoid Services Of [facility] Arthritis 710.0 Lupus Erythematosus Systemic 715.16 Osteoarthrosis Localized Prim Lower Leg 733.00 Osteoporosis Unspec V58.69 Medications Prison (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 Encounter Office Visit 08/18/2014 10:00a Rheumatology Elijahofimariya Turner 714.0 Rheumatoid Services Of [facility] Arthritis 710.0 Lupus Erythematosus Systemic 715.16 Osteoarthrosis Localized Prim Lower Leg 733.00 Osteoporosis Unspec V58.69 Medications Manager Terminal (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 Encounter Office Visit 06/12/2014 10:00a [facility] 714.0 Rhe[facility] Arthritis 710.0 Lupus Erythematosus Systemic 715.16 Osteoarthrosis Localized Prim Lower Leg 733.00 Osteoporosis Unspec V58.69 Medications Manager Terminal (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 Encounter Office Visit 03/11/2014 Rheumatology Elijahofia 710.0 Lupus Erythematosus 9:30a Services Of [facility] ADRIANA Turner Systemic 714.0 Rheumatoid Arthritis 721.3 Spondylosis Lumbar W/O Myelopathy V58.69 Medications Manager Terminal (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 Encounter 728.71 Fibromatosis Plantar Fascia Office Visit 12/09/2013 Rheumatology Elijahofimariya 710.0 Lupus Erythematosus 9:30a Services Of [facility] ADRIANA Turner Systemic 714.0 Rheumatoid Arthritis 715.16 Osteoarthrosis Localized Prim Lower Leg V58.69 Medications Prison (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 Encounter 733.00 Osteoporosis Unspec Office Visit 09/09/2013 Rheumatology Elijahofia 710.0 Lupus Erythematosus 10:30a Services Of [facility] ADRIANA Turner Systemic 714.0 Rheumatoid Arthritis V58.69 Medications Manager Terminal (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 Encounter Office Visit 05/24/2013 Rheumatology Elijahofia 710.0 Lupus Erythematosus 11:00a Services Of [facility] ADRIANA Turner Systemic 714.0 Rheumatoid Arthritis V58.69 Medications Manager Terminal (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 Encounter 443.0 Raynauds Syndrome 288.50 Leukocytopenia, Unspecified Office Visit 02/22/2013 Rheumatology Elijahofia 710.0 Lupus Erythematosus 1:00p Services Of [facility] ADRIANA Turner Systemic 715.16 Osteoarthrosis Localized Prim Lower Leg 288.50 Leukocytopenia, Unspecified 714.0 Rheumatoid Arthritis V58.69 Medications Prison (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 Encounter Office Visit 11/21/2012 Rheumatology Elijahofia 710.0 Lupus Erythematosus 2:40p Services Of [facility] ADRIANA Turner Systemic 715.16 Osteoarthrosis Localized Prim Lower Leg V58.69 Medications Prison (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 Encounter 721.3 Spondylosis Lumbar W/O Myelopathy Office Visit 08/17/2012 Rheumatology Krishna 710.0 Lupus Erythematosus 9:00a Services Of ADRIANA Cisneros Systemic 715.16 Osteoarthrosis Localized Prim Lower Leg V58.69 Medications Prison (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 Encounter Office Visit 05/17/2012 Rheumatology Vin Sanchez, 710.0 Lupus Erythematosus 9:20a Services Of [facility] Systemic V58.69 Medications Prison (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 Encounter Office Visit 02/16/2012 Rheumatology Vin Sanchez, 710.0 Lupus Erythematosus 9:40a Services Of [facility] Systemic V58.69 Medications Prison (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 Encounter 288.50 Leukocytopenia, Unspecified 719.49 Pain Joint Multiple Sites Office Visit 11/29/2011 Rheumatology Vin Sanchez, 710.0 Lupus Erythematosus 10:20a Services Of [facility] Systemic V58.69 Medications Manager Terminal (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 Encounter Office Visit 09/16/2011 Rheumatology Vin Sanchez, 710.0 Lupus Erythematosus 11:20a Services Of [facility] Systemic V58.69 Medications Prison (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 Encounter 719.49 Pain Joint Multiple Sites Office Visit 07/06/2011 Rheumatology Vin Sanchez, 710.0 Lupus Erythematosus 11:00a Services Of [facility] Systemic V58.69 Medications Prison (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 Encounter 814.00 FX Carpal Bone Closed Unspec Office Visit 04/22/2011 Rheumatology Vin Sanchez, 710.0 Lupus Erythematosus 1:40p Services Of [facility] Systemic V58.69 Medications Prison (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 Encounter 719.49 Pain Joint Multiple Sites Office Visit 02/03/2011 Rheumatology Vin Sanchez, 710.0 Lupus Erythematosus 9:20a Services Of [facility] Systemic 719.40 Pain Joint Site Unspec Office Visit 11/25/2010 Rheumatology Vin Sanchez, 710.0 Lupus Erythematosus 9:20a Services Of [facility] Systemic V58.69 Medications Manager Terminal (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 Encounter 719.40 Pain Joint Site Unspec 288.50 Leukocytopenia, Unspecified Office Visit 09/28/2010 Rheumatology Vin Sanchez, 710.0 Lupus Erythematosus 11:00a Services Of [facility] Systemic 715.16 Osteoarthrosis Localized Prim Lower Leg V58.69 Medications Manager Terminal (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 Encounter Office Visit 08/04/2010 Rheumatology Vin Endo, 710.0 Lupus Erythematosus 2:00p Services Of [facility] Cesar Systemic V58.69 Medications Manager Terminal (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 Encounter Plan of Treatment Future Appointment(s):05/14/2018 9:30 am - Radha Bai M.D. at [facility]/26/2018 10:30 am - ADRIANA Long at [facility]04/30/2018 - Radha Bai M.D.M05.79 Rheumatoid arthritis with rheumatoid factor of multiple siteM32.9 Systemic lupus erythematosus, fbakscvftshP81.552 Pain in left hipM16.12 Unilateral primary osteoarthritis, left hipFollow up:Follow up: 7-10 days before surgery
--- OUTSIDE RECORDS SUMMARY | 2018-05-25 08:07 | XMS REPORT | Continuity of Care Document ---
:1950 External Reference #:[id number] Author Name Kinjal Neal MD Address [address] [place] [address] Care Team Providers Name Role Phone Angy Hirsch M.D. Care Team Information Supervisor Instrument Repair Unavailable Angy Hirsch M.D. Primary Care Physician Unavailable Payers Type Date Identification Numbers Payment Provider Subscriber Policy Number: [id number] Medicare NGS Krista Aparicio PayID: [id number] [address] [place] [address] Policy Number: [id number] [facility] Krista Aparicio PayID: [id number] [address] [place] [address] Advance Directives Description No Information Available Problems Date Description Provider Status Onset: 04/10/2018 Palpitations Kinjal Neal MD Active Onset: 04/10/2018 Chest pain Kinjal Neal MD Active Onset: 04/10/2018 Dizziness and giddiness Kinjal Neal MD Active Onset: 04/10/2018 Pain in limb Kinjal Neal MD Active Onset: 04/10/2018 Essential hypertension Kinjal Neal MD Active Onset: 04/10/2018 Systemic lupus erythematosus Kinjal Neal MD Active Onset: 04/10/2018 Hypothyroidism Kinjal Neal MD Active Onset: 04/10/2018 Carotid artery occlusion Kinjal Neal MD Active Onset: 04/10/2018 Rheumatoid arthritis Kinjal Neal MD Active Onset: 04/10/2018 Preoperative cardiovascular examination Kinjal Neal MD Active Onset: 04/10/2018 Obstructive sleep apnea syndrome Kinjal Neal MD Active Onset: 04/10/2018 Hypertensive heart disease complicating Kinjal Neal MD Active AND/OR reason for care during Onset: 04/10/2018 Family history of ischemic heart disease Kinjal Neal MD Active and other diseases of the circulatory system Onset: 04/10/2018 Osteoarthritis of hip, unspecified Kinjal Neal MD Active Family History Description No Information Available Social History Type Date Description Comments Sex Unknown Tobacco Use Start: Unknown Never Smoked Cigarettes ETOH Use Denies alcohol use Recreational Drug Use Denies Drug Use Tobacco Use Start: Unknown Patient has never smoked Smoking Status Reviewed: 05/04/18 Patient has never smoked Allergies, Adverse Reactions, Alerts Date Description Reaction Status Severity Comments 04/17/2013 Penicillin Active Medications Medication Date Status Form Strength Qnty SIG Indications Ordering Provider Calcium 04/17/ Active Tablets 600mg 1 po qd Stress 2012 ECHO/Nucl ear Stress Alprazolam / Active Tablets 0.5mg mg 30tab 3 Tabs Unknown 0000 s Daily Diltiazem CD / Active Caps ER 300mg qd Unknown 0000 24HR Hydroxychloroquine / Active Tablets 200mg 1 PO bid Unknown Sulfate 0000 Levothyroxine Sodium / Active Tablets 150mcg 1 po qd Unknown 0000 Losartan Potassium / Active Tablets 50mg 90tab 1 po qd Unknown 0000 s Methotrexate / Active Tablets 2.5mg 4 Tabs Unknown 0000 On Sat Ropinirole HCL / Active Tablets 1mg 1-5Tabs Unknown 0000 Daily Vibryd 00/ Active 20mg 1 PO Unknown 0000 Qday Aspirin 81 / Active Tablets 81mg 90tab 1 po qd Unknown [address] tony Vitamin D / Active Tablets 2000Unit 2 Tabs Unknown 0000 Daily Multivitamins / Active Capsules 1 PO Unknown 0000 Qday Folic Acid / Active Tablets 400mcg 1 by Unknown 0000 mouth every day Trazodone HCL / Active Tablets 50mg 2 Tabs Unknown 0000 by mouth every night at bedtime Bupropion HCL ER / Active Tablets 150mg 1 every Unknown (SR) 0000 ER 12HR day for 3 days then twice a day Omeprazole / Active Tablets 40mg Daily Unknown [address] DR Glucosamine 04/17/ Hx Capsules 250-200mg 1 po Stress Chondroitin 2012 - bid---ot ECHO/Nucl ear 2017 Stress Alendronate Sodium / Hx Tablets 70mg 1 tab q Unknown 0000 - weekly 2017 Nabumetone / Hx Tablets 750mg bid Unknown 0000 - 2017 Seroquel / Hx Tablets 100mg 1 qhs Unknown 0000 - 2017 Iron Supplement / Hx Tablets 325(65Fe) 1 po qd Unknown 0000 - mg 2017 Immunizations Description No Information Available Vital Signs Date Vital Result Comment 05/04/2018 7:51am BP Systolic 150 mmHg BP Diastolic 70 mmHg Heart Rate 56 /min Respiratory Rate 20 /min Height 66 inches 5'6" Weight 170.00 lb O2 % BldC Oximetry 98 % BMI (Body Mass Index) 27.4 kg/m2 BSA (Body Surface Area) 1.87 m2 BP Systolic Sitting 150 mmHg BP Diastolic Sitting 70 mmHg BP Systolic Lying Down 148 mmHg BP Diastolic Lying Down 80 mmHg BP Systolic Standing 112 mmHg BP Diastolic Standing 80 mmHg 04/10/2018 1:03pm BP Systolic 116 mmHg BP Diastolic 64 mmHg Heart Rate 66 /min Respiratory Rate 14 /min Height 66 inches 5'6" Weight 170.00 lb O2 % BldC Oximetry 96 % BMI (Body Mass Index) 27.4 kg/m2 BSA (Body Surface Area) 1.87 m2 04/23/2013 3:11pm BP Systolic 98 mmHg BP Diastolic 62 mmHg Heart Rate 76 /min Respiratory Rate 18 /min Height 66 inches 5'6" Weight 160.00 lb O2 % BldC Oximetry 98 % BMI (Body Mass Index) 25.8 kg/m2 BSA (Body Surface Area) 1.82 m2 04/17/2013 9:51am BP Systolic 120 mmHg BP Diastolic 76 mmHg Heart Rate 73 /min Respiratory Rate 20 /min Height 66 inches 5'6" Weight 160.00 lb O2 % BldC Oximetry 99 % BMI (Body Mass Index) 25.8 kg/m2 BSA (Body Surface Area) 1.82 m2 BP Systolic Sitting 120 mmHg BP Diastolic Sitting 76 mmHg BP Systolic Lying Down 112 mmHg BP Diastolic Lying Down 66 mmHg BP Systolic Standing 110 mmHg BP Diastolic Standing 62 mmHg Results Description No Information Available Procedures Date Code Description Status 05/04/2018 74490 Artery Study Extremity Mult Levels Bilateral Completed 04/10/2018 65300 Echocardiography Complete Completed 04/10/2018 69419 Holter Monitor Complete/Hookup,Analysis,Report & MD Interp Completed 04/10/2018 23336 Electrocardiogram Complete Completed 04/23/2013 54523 Electrocardiogram Complete Completed 04/17/2013 48833 Carotid Doppler Complete Completed 04/17/2013 27438 Carotid Doppler Complete Completed 04/17/2013 24190 Stress ECHO Complete (Office) Interp, Report & Physician Completed Supervsn 04/17/2013 89986 Doppler ECHO Color Flow Velocity Mapping Completed 04/17/2013 59214 Doppler Echocardiography Complete Completed Encounters Type Date Location Provider Dx Diagnosis Office Visit 05/04/2018 Kamila Stress Z01.810 Encounter for 8:00a ECHO/Nuclear preprocedural Stress cardiovascular examination I10 Essential (primary) hypertension I11.9 Hypertensive heart disease without heart failure M32.10 Systemic lupus erythematosus, organ or system involv unsp I65.23 Occlusion and stenosis of bilateral carotid arteries E03.9 Hypothyroidism, unspecified M06.9 Rheumatoid arthritis, unspecified M16.9 Osteoarthritis of hip, unspecified G47.33 Obstructive sleep apnea (adult) (pediatric) Z82.49 Family hx of ischem heart dis and oth dis of the circ sys Office Visit 04/10/2018 1:00p Kamila Neal MD R00.2 Palpitations R07.9 Chest pain, unspecified R42 Dizziness and giddiness M79.606 Pain in leg, unspecified I10 Essential (primary) hypertension I11.9 Hypertensive heart disease without heart failure Z82.49 Family hx of ischem heart dis and oth dis of the circ sys M32.10 Systemic lupus erythematosus, organ or system involv unsp E03.9 Hypothyroidism, unspecified I65.23 Occlusion and stenosis of bilateral carotid arteries M06.9 Rheumatoid arthritis, unspecified M16.9 Osteoarthritis of hip, unspecified Z01.810 Encounter for preprocedural cardiovascular examination G47.33 Obstructive sleep apnea (adult) (pediatric) Office Visit 04/23/2013 3:15p Mere De La Rosa, 401.1 Hypertension Benign M.D. 780.79 Malaise And Fatigue Other V17.49 Family HX Of Other Cardiovascular Diseases Plan of Treatment Future Appointment(s):09/03/2018 10:20 am - Kinjal Neal MD at [id number] - Kinjal Neal MDZ01.810 Encounter for preprocedural cardiovascular nrzjglyoatfJ57 Essential (primary) hksmpjrgttxiR32.9 Hypertensive heart disease without heart xshnirlB42.23 Occlusion and stenosis of bilateral carotid xmibxhyzJ20.33 Obstructive sleep apnea (adult) (pediatric)M32.10 Systemic lupus erythematosus, organ or system involv unspE03.9 Hypothyroidism, ntfyrgjgdmfE43.9 Rheumatoid arthritis, wqblflkcdpfI35.9 Osteoarthritis of hip, cuoyopngykyH87.49 Family hx of ischem heart dis and oth dis of the circ sysR07.9 Chest pain, fjyoqyhxbqvH41.2 QpovmektrfimK48.606 Pain in leg, unspecifiedRecommendations:1. I reviewed patient's clinical history and discussed in comprehensive details the findings on examination. 2. Overall, based on all pertinent clinical information, history, examination, and observation, patient not in acute decompensation. 3. Reviewed all prior cardiovascular work ups including today's NMPI, KAI, recent Holter, EKG and echocardiogram, notes from PCP, recent blood test, carotid US, prior old stress echocardiogram and nuclear MPI findings and it's significance discussed with the patient. 4. BP stable. Continue with current Losartan 25 mg daily and Diltiazem 300 mg daily. 5. Management of hypertension in general with diet, reduced calories, low salt diet, moderate regular exercise,maintaining ideal body weight and current medical therapy. 6. Most recent lipid profile within acceptable range, on diet therapy. Lipid management in general explained, current lipid therapy and recentvalues reviewed and advised present medical therapy. 7. Continue aggressive risk factor modification with keeping cholesterol, weight, blood pressure, and blood sugar at target level were discussed with the patient in detail. 8. At this time, patient was advised continuation of current medications. 9. If there is sudden change in condition, development of symptoms, patient was advised to seek prompt medical help. 10. Regular follow up in 4 months or earlier if needed. 11. Patient is expected to tolerate the planned procedure with intermediate to high cardiovascular risk given her comorbid conditions. No absolute contraindication to planned procedure. 12. Patient may stop her Aspirin 5 days prior to the surgery and to resume after the procedure or when bleeding is permissible. 13. DVT prophylaxis as per the orthopedic guidelines to prevent DVT and pulmonary embolism. 14. On the day of surgery, patient advised to take Diltiazem and Losartan with a sip of water prior to surgery. 15. Patient isinstructed to follow the instruction of and anesthesia service in preparation for surgery. 16. Regular follow-up as scheduled.
--- OUTSIDE RECORDS SUMMARY | 2018-05-25 08:07 | XMS REPORT | Continuity of Care Document ---
:1950 External Reference #:[id number] Author Name Micaela Mott Address [address] [place] [address] Care Team Providers Name Role Phone nAgy Hirsch MD Primary Care Physician Unavailable Payers Type Date Identification Numbers Payment Provider Subscriber Policy Number: [id number] Medicare Krista Aparicio PayID: [id number] [facility] [address] [place] [address] Policy Number: [id number] [facility] Krista Aparicio PayID: [id number] [address] [place] [address] Expires: 2009 Policy Number: [id number] Of DARIELA Aparicio PayID: [id number] [address] [address] [place] [address] Advance Directives Description No Information Available Problems Date Description Provider Status Onset: 11/24/2010 Atrophic vaginitis Ancillary Services Active Onset: 11/24/2010 Female stress incontinence Ancillary Services Active Onset: 11/24/2010 Osteochondropathy Ancillary Services Active Onset: 11/24/2010 Mixed urinary incontinence Park Young Active CNM, SR SOLUTIONS CONSULTANT Onset: 11/24/2010 Systemic lupus erythematosus Park Young Active CNM, SR SOLUTIONS CONSULTANT Onset: 11/24/2010 Hypothyroidism Park Young Active CNM, SR SOLUTIONS CONSULTANT Onset: 11/24/2010 Essential hypertension Park Young Active CNM, SR SOLUTIONS CONSULTANT Onset: 11/24/2010 Restless legs Park Young Active CNM, SR SOLUTIONS CONSULTANT Onset: 11/24/2010 Rheumatoid arthritis Park Young Active CNM, SR SOLUTIONS CONSULTANT Onset: 11/24/2010 Depressive disorder Park Young Active CNM, SR SOLUTIONS CONSULTANT Onset: 11/24/2010 Anxiety state Park Young, Active MAGDA, SR SOLUTIONS CONSULTANT Onset: 11/28/2011 Osteoporosis Park Young, Active CNVane, SR SOLUTIONS CONSULTANT Onset: 11/30/2012 Overweight [facility] Destiny Gibbs, MAGDA, SR SOLUTIONS CONSULTANT Active Onset: 03/03/2015 SAPHO syndrome Andrea Vivian, MS, Active SR SOLUTIONS CONSULTANT-BC Onset: 03/03/2015 Stress incontinence (female) AngeloJamieSilke Vivian, MS, Active (male) SR SOLUTIONS CONSULTANT-BC Family History Date Family Member(s) Problem(s) Comments Father Hip FX Father Congestive Heart Failure (CHF) Father Coronary Artery Disease (CAD) Father Mother [place] Mother Rheumatoid Arthritis Mother Osteoporosis Mother First Brother Mouth Cancer First Brother Etoh Abuse First Brother Alcohol/smoking Second Brother due to Etoh/smoker () Social History Type Date Description Comments Sex Unknown Marital 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 Tobacco Use Start: Unknown Never Smoked Cigarettes ETOH Use Denies alcohol use Tobacco Use Start: Unknown Patient has never smoked Smoking Status Reviewed: 05/03/18 Patient has never smoked Sun Exposure minimum amount of sun exposure Seat Belt/Car Seat always uses seat belt Currently Active 2013 Not sexually active x many years Allergies, Adverse Reactions, Alerts Date Description Reaction Status Severity Comments 11/11/2005 Penicillin Active hives Medications Medication Date Status Form Strength Qnty SIG Indications Ordering Provider Nystatin 05/03 Active Cream [id number] 1tube apply thin R23.8 t/GM layer to Yoon, irritated ENERGY ADMINISTRATOR-C external vuvla area twice daily for 5-7 days Prolia 08/02 Active Solution 60mg/ml 1 injection every 6 months Folic Acid 11/08 Active Tablets 1mg 1 by mouth every day Vitamin D3 10/03 Active Capsules 2000Unit 1 by mouth every day Diltiazem CD Active Capsules 300mg qd Levothyroxine Active Tablets 150mcg 1 PO qd Methotrexate Dose Active Tablets 2.5mg 4 Tabs Per Unknown Pack /0000 Week Aspirin Active Chewtabs 81mg 1 PO qd Multivitamins Active Tablets 1 PO qd Calcium/Vitamin D Active 1 PO bid Hydrochloroquine Active 200mg 2 qd Unknown Losartan Potassium Active Tablets 50mg qd Unknown Vibryd Active 20mg qd Unknown Alprazolam XR Active Tablets 1mg Macadam, /0000 ER 24HR MD Reyes Travisia XT Active Caps ER 300mg Macadam, 0000 24HR MD Angy Ropinirole HCL Active Tablets 1mg Macadam, MD Angy Trazodone HCL Active Tablets 100mg q hs Unknown Betamethasone Active Cream 0.05% apply to Unknown Dipropionate skin fold sparingly twice daily x 5-7 days as needed Clotrimazole Active Cream 1% prn skin Unknown Anti-Fungal folds Nystatin-Triamcino 12/03 Hx Cream 233864-1. 30gms use Micaela salazar 1Unit/GM- external Beltrán - % once to [facility] 06/05 twice a day /2014 sparingly as directed. Levofloxacin 11/20 Hx Tablets 750mg prn 1 po x 7 days - lupus 03/03 Prednisone 09/03 Hx Tablets 10mg prn - 05/02 Forteo 08/31 Hx Solution 600mcg/2. 3pens 20 4ML micrograms - sq daily in 07/25 thigh or abdominal wall Voltaren 08/03 Hx Gel 1% prn knee pain - 03/03 Fosamax 11/11 Hx Tablets 70mg 1 PO qweek Lala Africa Fernandez 04/05 Cesar /2009 Amitriptyline Hx Tablets 25mg 1 PO hs - 11/19 Clonidine Hx Tablets 0.1mg 1 po tid - 11/18 Effexor Hx Tablets 150mg bid - 11/03 Micardis Hx Tablets 40mg qd - 11/03 Nabumetone Hx Tablets 750mg 1 PO bid - 05/02 Plaquenil Hx Tablets 200mg 1 PO bid - 06/15 Requip Hx Tablets 1mg 1 PO @ hs Unknown / - 03/03 Glucosamine/Chron Hx 500mg 2 po qd - 05/02 Seroquel Hx Tablets 100mg 1 PO qd - 03/03 Xanax Hx Tablets 0.5mg 1 PO prn Unknown - 03/03 Iron Hx Unknown - 03/03 Glucosamine/Chondr Hx Unknown oitin / - 11/19 Protein Powder Hx Powder qd - 05/02 Alendronate Sodium Hx Tablets 70mg 4tabs take 1 tablet - every week 07/06 Quetiapine Hx Tablets 100mg Macadam, Fumarate Christina Travis MD 05/02 Viibryd Hx Tablets 40mg Macadam, Christina Travis MD 05/02 Immunizations Description No Information Available Vital Signs Date Vital Result Comment 05/03/2018 1:48pm BP Systolic 130 mmHg BP Diastolic 80 mmHg Heart Rate 72 /min Height 66 inches 5'6" Weight 169.00 lb BMI (Body Mass Index) 27.3 kg/m2 Height in cm's 167.6 cm Weight 76.658 kg 03/04/2016 10:27am BP Systolic 112 mmHg BP Diastolic 70 mmHg Heart Rate 80 /min Height 65 inches 5'5" Weight 163.25 lb Urine Dipstick - Protein NEGATIVE Urine Dipstick - Glucose NEGATIVE BMI (Body Mass Index) 27.2 kg/m2 Height in cm's 165.1 cm Weight 74.050 kg 03/03/2015 10:01am BP Systolic 134 mmHg BP Diastolic 76 mmHg Heart Rate 70 /min Height 65.25 inches 5'5.25" Weight 163.25 lb BMI (Body Mass Index) 27.0 kg/m2 Height in cm's 165.7 cm Weight 74.050 kg 12/03/2013 10:53am BP Systolic 122 mmHg BP Diastolic 68 mmHg Heart Rate 80 /min Height 65.25 inches 5'5.25" Weight 164.31 lb BMI (Body Mass Index) 27.1 kg/m2 Height in cm's 165.7 cm Weight 74.532 kg 11/30/2012 10:56am BP Systolic 120 mmHg BP Diastolic 72 mmHg Heart Rate 80 /min Height 65.50 inches 5'5.50" Weight 162.38 lb Urine Dipstick - Protein NEGATIVE Urine Dipstick - Glucose NEGATIVE 1 Parity 1 BMI (Body Mass Index) 26.6 kg/m2 Height in cm's 166.4 cm Weight 73.653 kg 11/28/2011 10:26am BP Systolic 106 mmHg BP Diastolic 76 mmHg Heart Rate 82 /min Height 66 inches 5'6" Weight 163.12 lb 1 Parity 1 BMI (Body Mass Index) 26.3 kg/m2 Height in cm's 167.6 cm Weight 73.993 kg 11/24/2010 8:31am BP Systolic 106 mmHg BP Diastolic 80 mmHg Height 66.50 inches 5'6.50" Weight 162.44 lb Urine Dipstick - Protein NEGATIVE Urine Dipstick - Glucose NEGATIVE 1 Parity 1 BMI (Body Mass Index) 25.8 kg/m2 Height in cm's 168.9 cm Weight 73.682 kg 11/23/2009 10:03am BP Systolic 118 mmHg BP Diastolic 86 mmHg Height 66 inches 5'6" Weight 157.00 lb Urine Dipstick - Protein NEGATIVE Urine Dipstick - Glucose NEGATIVE 1 Parity 1 BMI (Body Mass Index) 25.3 kg/m2 Height in cm's 167.6 cm Weight 71.215 kg 11/19/2008 10:10am BP Systolic 122 mmHg BP Diastolic 80 mmHg Height 66.25 inches 5'6.25" Weight 167.00 lb Urine Dipstick - Protein NEGATIVE Urine Dipstick - Glucose NEGATIVE 1 Parity 2 BMI (Body Mass Index) 26.7 kg/m2 Height in cm's 168.3 cm Weight 75.751 kg 11/19/2007 10:02am BP Systolic 110 mmHg BP Diastolic 80 mmHg Height 66.25 inches 5'6.25" Weight 161.50 lb 1 Parity 2 BMI (Body Mass Index) 25.9 kg/m2 Weight 73.256 kg 11/14/2006 9:55am BP Systolic 124 mmHg BP Diastolic 76 mmHg Heart Rate 68 /min Height 66.25 inches 5'6.25" Weight 166.00 lb 1 Parity 2 BMI (Body Mass Index) 26.6 kg/m2 Weight 75.298 kg 06/27/2006 11:17am BP Systolic 118 mmHg BP Diastolic 68 mmHg Heart Rate 70 /min Height 66.25 inches 5'6.25" 06/15/2006 11:04am BP Systolic 138 mmHg BP Diastolic 80 mmHg Height 66.25 inches 5'6.25" Weight 168.00 lb 1 Parity 2 LMP 07/10 BMI (Body Mass Index) 26.9 kg/m2 Weight 76.205 kg 11/11/2005 11:08am BP Systolic 115 mmHg BP Diastolic 78 mmHg Height 66.25 inches 5'6.25" Weight 164.00 lb Urine Dipstick - Protein NEGATIVE Urine Dipstick - Glucose NEGATIVE Last Menstrual Period [id number] 1 Parity 2 BMI (Body Mass Index) 26.3 kg/m2 Height in cm's 168.3 cm Weight 74.390 kg Results Test Date Facility Test Result H/L Range Note Laboratory test 05/03/2018 [facility] Vaginal <pending> finding [address] [place] [address] [phone] Comprehensive Panel 01/31/2013 [facility] Sodium 144 mmol/L 136-145 [address] [place] [address] [phone] Potassium 4.3 mmol/L 3.6-5.2 Chloride 106 mmol/L 100-108 Co2 28 mmol/L 21-32 Glucose 83 mg/dL 70-110 Glu Range Header [employer] <SEE NOTE> 1 BUN 22 mg/dL High 7-21 Creatinine 0.9 mg/dL 0.6-1.3 Calcium 8.6 mg/dL 8.5-10.8 GFR >60 GFR Ranges Normal Kidney Fu <SEE NOTE> 2 T Bili 0.6 mg/dL 0.0-1.0 T Protein 7.2 gm/dL 6.4-8.2 Albumin 4.0 gm/dL 3.2-4.6 Alk Phos 122 U/L 50-136 Alt (SGPT) 25 U/L 12-78 Ast (Sgot) 19 U/L 15-37 25 Hydroxy Vit D 01/31/2013 [facility] 25 Hydroxy Vit D 55 NG/ML 30-95 @ [address] [place] [address] [phone] [id number] VITAMIN D STATUS <SEE NOTE> 3 Xray 01/24/2012 [facility] birads 1 37 [facility] [place] [place] [address] Mammogram [phone] Xray 01/18/2011 [facility]ads 1 37 [facility] [place] [address] Mammogram [phone] N Telopeptide Urine 12/02/2010 [facility] Hours Of 24 hr [address] [facility] [address] [place] [address] [phone] Urine Volume 1500 mL NTX NM Bce/mm Creat 44 4 Creatinine, Urine 62 mg/dL 5 Laboratory test 11/24/2010 [facility] HPV DNR 6 finding [address] [place] [address] [phone] Xray 01/15/2010 [facility] Bilatral birads 1 [address] [facility] [place] [place] [address] Mammogram [phone] Laboratory test 11/23/2009 [facility] Surepath Liquid neg atrophic finding 17 [facility] [place] [address] [phone] Xray 01/14/2009 [facility] Bilatral birads 1 [address] [facility] [place] [address] Mammogram [phone] Laboratory test 11/19/2008 [facility] Surepath neg finding 17 [facility] [place] [address] [phone] Xray 01/14/2008 [facility] Bilatral birads [address] [facility] [address] [place] [address] To Diagnostic If [phone] Needed.U/S If Need Laboratory test 11/19/2007 [facility] Surepath NEG finding 17 [facility] [place] [address] [phone] Xray 01/12/2007 [facility] Bilatral birads [address] [facility] [address] [place] [address] To Diagnostic If [phone] Needed.U/S If Need 1 The [place] [employer] recommends that the upper limit of the normal reference range for Glucose be 100 mg/dl. 2 Normal Kidney Function or Mild Disease - GFR >OR=60 Chronic Kidney Disease - GFR 15-59 Renal Failure - GFR < 15 GFR not calculated on patients under 18 years of age. Calculated (estimated) G FR is based on the MDRD Study equation, which assumes a steady state for creatinine. Estimated GFR may not be appropriate for medication dosing. 3 VITAMIN D STATUS VITAMIN D Level DEFICIENCY <20 NG/ML INSUFFICIENCY 20-30 NG/ML SUFFICIENCY 31-96 NG /ML POTENTIAL TOXICITY >96 NG/ML 4 Normal adult female: Premenopausal: 17-94 nM BCE/mM creatinine Postmenopausal: 26-124 nM BCE/mM creatinine REFERENCE INTERVAL: N-Telopeptide, Cross Linked, Urine NTx Units=nM BCE/mM creatinine A decrease of 30-40% from the NTx baseline after 3 months of therapy is a typical response to anti-resorptive therapy. NTx=Cross-linked N-telopeptide of Type I Collagen BCE=Bone Collagen Equivalent 5 Performed by [facility], [address] [place] [id number] [email or web address], Sherley Kevin MD, Lab. Director [address] [place] [address] Digene Hybrid Capture II HPV Test Accession Number [id number] Specimen(s) Received A: Digene SP Cervical / Endocervical Pap Smear - One Vial Other Case Numbers: [id number] Diagnosis RISK GROUPS HPV TYPES RESULTS High Risk (16, 18, 31, 33, 35, 39, 45, 51, 52, 56, 58, 59, 68) NEGATIVE Comments The performance characteristics of the SurePath cell pellet specimen tested for this assay were validated by [facility] and licensed for use by the [facility] Department of [facility]. This test has not been licensed by the FDA and the result is not intended to be used as the sole means for clinical diagnosis or patient management. Negative results do not rule out the presence of disease. Reported: 11/26/2010 16:20 Electronically Signed Out By Sugey Oconnor ssa Procedures Date Code Description Status 03/05/2018 [id number] Mammogram Completed 06/05/2017 36704497 Colonoscopy Completed 02/03/2017 700578086 Bone Mineral Density Test Completed 03/04/2016 74404 Collection Of Capillary Bood Completed 03/03/2015 53567 Collection Of Capillary Bood Completed 11/19/2008 52735 Collection Of Capillary Bood Completed 11/19/2007 33354 Collection Of Capillary Bood Completed 06/27/2006 11851 Endometrial Biopsy Completed 06/23/2006 53673 Echography,Transvaginal Completed 06/23/2006 92229 Echography,Transvaginal Completed 12/30/2004 61451 Hysterosonography Completed 12/30/2004 13403 HSG Injection Completed Encounters Type Date Location Provider Dx Diagnosis Office Visit 05/03/2018 Main Office > Yoon Andino, Z01.419 Encntr for ob gyn physician assistant 1:40p 01/03/07 ENERGY ADMINISTRATOR-C exam (general) (routine) w/o abn findings N83.291 Other ovarian cyst, right side Z12.12 Encounter for screening for malignant neoplasm of rectum N95.2 Postmenopausal atrophic vaginitis E66.3 Overweight N39.46 Mixed incontinence N81.2 Incomplete uterovaginal prolapse M85.89 Oth disrd of bone density and structure, multiple sites Z12.31 Encntr screen mammogram for malignant neoplasm of breast M81.8 Other osteoporosis without current pathological fracture R23.8 Other skin changes Z68.27 Body mass index (BMI) 27.0-27.9, adult Office Visit 03/03/2015 9:30a Main Office > Kimberley Mendez Z01.419 Encntr for ob gyn physician assistant 01/03/07 MS Edwige, SR SOLUTIONS CONSULTANT-BC exam (general) (routine) w/o abn findings Z12.12 Encounter for screening for malignant neoplasm of rectum M85.9 Disorder of bone density and structure, unspecified N39.3 Stress incontinence (female) (male) N95.2 Postmenopausal atrophic vaginitis E66.3 Overweight Office Visit 12/03/2013 11:00a Main Office > Micaela M. V72.31 Routine Automatic Bow Maker Machine Tender 01/03/07 Jerel Guerrero Examination P.CLeila V76.41 Screening Malignant Neoplasm Rectum 788.33 Incontinence Mixed (Male) (Female) 733.09 Osteoporosis Other 112.3 Candidiasis Skin & Nails 611.9 Breast Disorders Unspec 278.02 Overweight Office Visit 11/30/2012 10:40a Main Office > Mercy Dixon V72.31 Routine Automatic Bow Maker Machine Tender 01/03/07 MAGDA Gibbs, SR SOLUTIONS CONSULTANT Examination 627.3 Atrophic Vaginitis Postmenopausal 625.6 Stress Incontinence Female 618.01 Cystocele, Midline V76.41 Screening Malignant Neoplasm Rectum 311 Depressive Disorder Not Elsewhere Spec Office Visit 11/28/2011 Main Office Park V72.31 Routine Automatic Bow Maker Machine Tender 10:00a > 01/03/07 MAGDA Young, Examination SR SOLUTIONS CONSULTANT 627.3 Atrophic Vaginitis Postmenopausal 625.6 Stress Incontinence Female 733.09 Osteoporosis Other V76.41 Screening Malignant Neoplasm Rectum Office Visit 11/24/2010 Main Office [place] V72.31 Routine Automatic Bow Maker Machine Tender 8:40a > 01/03/07 MAGDA Young, Examination SR SOLUTIONS CONSULTANT 627.3 Atrophic Vaginitis Postmenopausal 625.6 Stress Incontinence Female V76.41 Screening Malignant Neoplasm Rectum 733.90 Bone & Cartilage Disorder Unspec Office Visit 11/23/2009 Main Office [place] V72.31 Routine Automatic Bow Maker Machine Tender 10:00a > 01/03/07 MAGDA Young, Examination SR SOLUTIONS CONSULTANT 627.3 Atrophic Vaginitis Postmenopausal 788.33 Incontinence Mixed (Male) (Female) V76.41 Screening Malignant Neoplasm Rectum Office Visit 11/19/2008 Main Office [place] V72.31 Routine Automatic Bow Maker Machine Tender 10:00a > 01/03/07 MAGDA Young, Examination SR SOLUTIONS CONSULTANT 627.3 Atrophic Vaginitis Postmenopausal 788.33 Incontinence Mixed (Male) (Female) V76.41 Screening Malignant Neoplasm Rectum Office Visit 11/19/2007 Main Office [place] V72.31 Routine Automatic Bow Maker Machine Tender 10:00a > 01/03/07 MAGDA Young, Examination SR SOLUTIONS CONSULTANT V76.41 Screening Malignant Neoplasm Rectum 627.3 Atrophic Vaginitis Postmenopausal 625.6 Stress Incontinence Female Office Visit 11/14/2006 10:00a Main Office > Lala Leger V72.31 Routine Automatic Bow Maker Machine Tender 01/03/07 Rebecca Guerrero Examination V76.41 Screening Malignant Neoplasm Rectum Office 06/15/2006 Ho Goss 627.1 Postmenopausal Visit 11:20a Office > AmberRN,MSN,ENERGY ADMINISTRATOR-C,WHNP-C Bleeding 01/03/07 Office 11/11/2005 Main Lala Fernandez M.D. V72.31 Routine Automatic Bow Maker Machine Tender Visit 11:00a Office > Examination 01/03/07 627.2 Menopausal Or Female Climacteric State, Symptomatic V76.41 Screening Malignant Neoplasm Rectum Plan of Treatment Future Appointment(s):05/15/2018 1:30 pm - Mamm/Dexa/Ultrasound at Main Office > 01/03/711 - Yoon Andino, ADRIANA-CZ01.419 Encounter for gynecological examination (general) (routine)Follow up:One year or sooner as needed Release PCP, Endocrine [facility] CA 125N83.291 Other ovarian cyst, right sideNew Labs:CA 125, Ordered: 05/03/18New Xrays:Transvaginal Pelvic Ultrasound, Scheduled: 05/15Z12.12 Encounter for screening for malignant neoplasm of sfzkqpP26.2 Postmenopausal atrophic yhwxktedtL85.3 UvsflzkxqoC49.46 Mixed wkukwxaozxpnP62.2 Incomplete uterovaginal fbinifpqC13.89 Other specified disorders of bone density and structure, mulZ12.31 Encounter for screening mammogram for malignant neoplasm ofM81.8 Other osteoporosis without current pathological rclwnkbtY49.8 Other skin changesNew Medication:Nystatin 980348 Unit/GM - apply thin layer to irritated external vuvla area twice daily for 5-7 daysZ68.27 Body mass index (BMI) 27.0-27.9, adult
--- OUTSIDE RECORDS SUMMARY | 2018-05-25 08:07 | XMS REPORT | Continuity of Care Document ---
:1950 Author Organization [facility] Support Name Relationship Address Phone BHAVANI VERA spouse [address] [place] [phone] BHAVANI VERA spouse [address] [place] [phone] Allergies and Intolerances No Allergy Data in the System Medications No Known Medications Problems No Data in the system Procedures No data in the system Results Microbiology Results w Susceptibilities Order: CULTURE VAGINAL -CERVICAL Specimen Source: Swab Body Site: Cervix uteri structureDirect Exam: Microscopic evaluation is NOT characteristic of bacterial [id number] Observations:Yeast, Staphylococcus aureus, or Wfgfpcjguib2esqvlpplp were NOT isolated.1Isolate #1:1Streptococcus agalactiae (Group B) (Rare)If either clindamycin or erythromycin is being considered for treatment asusceptibility test should be requested because of increasing resistance.Performing Lab Footnotes:[facility] - [id number] - [address] [place] [address] BRENDA VALENTIN Social History Code Code System Social History Description Dates Observed Observation [id number] SNOMED CT Current Smoking Unknown if ever Status smoked UNK AdministrativeGender Sex Assigned At Unknown Vital Signs No data in the system Goals Section No data in the system Health Concerns No data in the systemEncounter Diagnosis Date Code Code System Diagnosis Status R23.8 ICD10 OTHER SKIN CHANGES Active Advance Directives *RHIO - CONSENT IS YES Directive Type Effective Date Patcher Wood Welder Notes Supporting Document Name Address Phone No Directive Type 03/14/2016 Not Specified Not Specified Not Specified None No specified 10:23:39 AM Family History No data in the system Functional Status No data in the system Immunizations No data in the system Medical Equipment No data in the system Mental Status No data in the system Assessment and Plan Assessments No data in the systemPlan Of Treatment No data in the systemPending Tests No data in the system Hospital Discharge Instructions No data in the system Reason for Visit No data in the system
[2018-05-25] MEDS ORDERED: Clindamycin 900 MG/D5W BAG(*) 900 MG/50 ML BAG IVPB ONE (09:01)
[2018-05-25] MEDS ORDERED: Propofol* 10 MG/ML 20 ML BTL ONE (09:58)
[2018-05-25] MEDS ORDERED: fentaNYL* 50 MCG/ML 2 ML VIAL (100 MCG VIAL) ONE (09:58)
[2018-05-25] MEDS ORDERED: Midazolam* 1 MG/ML 5 ML VIAL (5 MG) ONE (09:59)
[2018-05-25] MEDS ORDERED: Atracurium* 10 MG/ML 10 ML VIAL ONE (09:59)
[2018-05-25] MEDS ORDERED: Dexamethasone IV* 4 MG/ML 1 ML (4 MG) ONE (10:17)
[2018-05-25] MEDS ORDERED: Naloxone* 0.4 MG/ML 1 ML VIAL IV PRN (11:37)
[2018-05-25] MEDS ORDERED: fentaNYL* 50 MCG/ML 2 ML VIAL (100 MCG VIAL) IV PRN (11:37)
[2018-05-25] MEDS ORDERED: Ondansetron INJ* 2 MG/ML VIAL IV PRN ×2 (11:37→11:49)
[2018-05-25] MEDS ORDERED: Acetaminophen IV 1GM/100ML * 1,000 MG/100 ML VIAL IVPB ONE (11:37)
[2018-05-25] MEDS ORDERED: oxyCODONE/Acetamin 5/325 MG* TAB PO PRN (11:37)
[2018-05-25] MEDS ORDERED: DiMENhydriNATE IV* 50 MG/ML VIAL IV PUSH PRN (11:37)
[2018-05-25] MEDS ORDERED: Bisacodyl SUPP* 10 MG SUPP PR PRN (11:49)
[2018-05-25] MEDS ORDERED: Ondansetron TAB* 4 MG PO PRN (11:49)
[2018-05-25] MEDS ORDERED: traMADol TAB* 50 MG PO PRN (11:49)
[2018-05-25] MEDS ORDERED: oxyCODONE TAB* 5 MG TAB PO PRN (11:49)
[2018-05-25] MEDS ORDERED: Polyethylene Glycol 3350* 17 GM PACKET PO PRN (11:49)
[2018-05-25] MEDS ORDERED: diPHENhydraMINE IV* 50 MG/ML 1 ml VIAL (BENADRYL) IV PRN (11:49)
[2018-05-25] MEDS ORDERED: Magnesium Hydroxide LIQ* 30 ML UDC PO PRN (11:49)
[2018-05-25] MEDS ORDERED: Morphine VIAL* 4 MG/ML VIAL (1 ml vial) IV PRN (11:49)
[2018-05-25] MEDS ORDERED: rOPINIRole TAB* 1 MG PO SCH (12:00)
[2018-05-25] MEDS ORDERED: Ondansetron INJ* 2 MG/ML VIAL ONE (12:06)
[2018-05-25] MEDS ORDERED: Acetaminophen IV 1GM/100ML * 100 ML ONE (12:07)
[2018-05-25] MEDS ORDERED: EPHEDrine (Pressors)* 50 MG/ML VIAL ONE (12:13)
[2018-05-25] MEDS ORDERED: Bupivacaine 0.5% SDV PF* 30ML VIAL ONE (12:28)
[2018-05-25] MEDS ORDERED: HYDROmorphone INJ1* 1 MG/ML SYRINGE ONE (13:10)
[2018-05-25] MEDS: HYDROmorphone INJ1* 1 MG/ML SYRINGE IV PRN ×2 (13:13→13:45)
[2018-05-25 13:26] LABS: Hematocrit 34 % (35-47); Hemoglobin 11.2 g/dl (12.0-16.0)
[2018-05-25] MEDS ORDERED: ALPRAZOLAM 0.5 MG PO SCH (14:00)
[2018-05-25] MEDS: Lactated Ringers 1000 ML Bag* 1,000 ML IV SCH ×2 (14:15→21:08)
[2018-05-25] MEDS: oxyCODONE/Acetamin 5/325 MG* TAB PO PRN ×2 (15:07→20:00)
[2018-05-25] MEDS ORDERED: Warfarin TAB(*) 6 MG PO ONE (17:00)
[2018-05-25] MEDS ORDERED: NS 0.9% 500 ML* 500 ML IV ONE ×2 (17:29→19:04)
--- NOTE | 2018-05-25 19:45 | CONS ---
CONSULTATION REPORT: DATE OF CONSULT: 05/25/18 PROVIDER: Dominga Gastelum NP ATTENDING PHYSICIAN: Dr. Monreal (report dictated by Dominga Gastelum NP). PRIMARY CARE PROVIDER: Angy Hirsch MD REFERRING PHYSICIAN: Dr. Bai. REASON FOR CONSULTATION: Co-medical management. HISTORY OF PRESENT ILLNESS: Ms. Aparicio is a 67-year-old female with a past medical history of rheumatoid arthritis, lupus, hypothyroidism, hypertension, osteoarthritis, depression, and anxiety, who underwent an elective left total hip today with Dr. Bai. [facility] is asked to co-medical manage. The patient was seen and evaluated at the bedside where she was found to be visiting with her daughter, alert and oriented, in no acute distress. She reports that her pain is well controlled. She denies nausea. She has been tolerating p.o. well. Denies any fevers or chills. She denies dizziness or shortness of breath. No chest pain. PAST MEDICAL HISTORY: 1. Rheumatoid arthritis. 2. Lupus. 3. Hypothyroidism. 4. Hypertension. 5. Osteoarthritis. 6. Anemia. 7. Depression. 8. Anxiety. 9. Sleep apnea. PAST SURGICAL HISTORY: Partial thyroidectomy. HOME MEDICATIONS: 1. Bupropion HCl 300 mg p.o. q.a.m. 2. Viibryd 1 tab p.o. q.a.m. 3. Trazodone 100 mg p.o. at bedtime. 4. Requip 1 mg take 2 throughout the day for restless legs, may take up to 5. 5. Omeprazole 40 mg p.o. q.a.m. 6. Multivitamin with mineral 1 tab p.o. q.p.m. 7. Methotrexate 2.5 mg 4 tabs p.o. weekly. 8. Losartan 50 mg p.o. q.a.m. 9. Synthroid 150 mcg p.o. q.a.m. 10. Plaquenil 200 mg p.o. b.i.d. 11. Folic acid 400 mcg p.o. q.a.m. 12. Diltiazem XR 300 mg p.o. q.a.m. 13. Prolia 60 mg q.6 months. 14. Vitamin D 2000 units p.o. b.i.d. 15. Calcium carbonate 600 mg p.o. q.p.m. 16. Aspirin 81 mg p.o. q.p.m. 17. Xanax 0.5 mg p.o. t.i.d. Current medications reviewed and appreciated. ALLERGIES: PENICILLIN. FAMILY HISTORY: Mother had a history of coronary artery disease and rheumatoid arthritis. Father had heart disease and hypertension. SOCIAL HISTORY: Denies alcohol, tobacco, or recreational drug use. 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 Her is her healthcare proxy. REVIEW OF SYSTEMS: A 14-point of review of systems was performed. All the pertinent positives and negatives are mentioned in the history of present illness, otherwise are negative. PHYSICAL EXAMINATION: Vital Signs: Temperature 97.1, heart rate 72, respirations 18, pulse oximetry 100% on room air, blood pressure is 123/47. General Appearance: A well-developed 67-year-old female, lying in bed, visiting with her daughter, alert and oriented x3, in no acute distress. HEENT: Head is normocephalic, atraumatic. Pupils are equal and reactive to light. Oropharynx is clear. Moist mucous membranes. Neck is supple. Cardiac: S1, S2. Regular rate and rhythm. No murmurs, rubs, or gallops appreciated. Lungs are clear to auscultation bilaterally. Good aeration throughout. Abdomen: Soft , nontender, nondistended. Normal bowel sounds throughout. Extremities: Left hip has ice pack with clean, dry, intact dressing. Sensation to lower extremities intact throughout. Warm and well perfused. Neuro: Alert and oriented x3. No focal deficits noted. ASSESSMENT AND PLAN: Ms. Aparicio is a 67-year-old female with a past medical history of lupus, rheumatoid arthritis, hypothyroidism, hypertension, osteoarthritis, anxiety and depression, who underwent a left total hip arthroplasty with Dr. Bai today. [facility] Medicine is asked to co-medical manage. 1. Status post left total hip arthroplasty. Disposition per ortho team. Pain management, bowel regimen, PT/OT. The patient has been started on Coumadin for DVT prophylaxis. INR daily. Continue Lovenox 40 mg subcutaneous q.24 hours until INR is therapeutic. Monitor HH 2. Rheumatoid arthritis/lupus. The patient reports her symptoms are well controlled. She follows with [facility] Rheumatology. Continue home medications of Plaquenil, methotrexate is given once weekly. 3. Hypothyroidism. Continue Synthroid. 4. Hypertension. Hold home meds due to soft blood pressures diltiazem. 5. Anxiety/depression. Continue bupropion and Xanax. 6. DVT prophylaxis: Lovenox q.24 hours. Continue Coumadin and following INRs daily. 7. Code status: Full code. TIME SPENT: Approximately 60 minutes was spent on this consultation. We will continue to follow along. DOMINGA GASTELUM, LANE [id number]/[facility] #: [id number] [place]ORT[place]
[2018-05-25] MEDS: Docusate CAP* 100 MG PO SCH (20:01)
[2018-05-25] MEDS: ALPRAZOLAM 0.5 MG PO SCH (20:01)
[2018-05-25] MEDS: Magnesium Hydroxide LIQ* 30 ML UDC PO SCH (20:02)
[2018-05-25] MEDS: Hydroxychloroquine TAB* 200 MG PO SCH (20:02)
[2018-05-25] MEDS: Clindamycin 600 MG IVPREMIX(* 600 MG/50 ML SDV IV SCH (20:03)
[2018-05-25] MEDS: Acetaminophen TAB* 325 MG PO SCH (20:07)
--- NOTE | 2018-05-25 20:43 | PN ---
Progress Note - Progress Note Date of Service: 05/25/18 Note: CAT was called for pt got near syncopal when walking. Was lowered to bed. appears pale, no LOC. BP 90/51, HR70, 02 sat 95% on RA. Pt is AAOx3, neuro intact. CV: RRR, no murmur. Resp: CTA b/l. Post op left thigh inspected: no hematoma noted Plan: 500 ml IVF bolus Check H&H
[2018-05-25 20:55] LABS: Hematocrit 29 % (35-47); Hemoglobin 9.5 g/dl (12.0-16.0)
[2018-05-26 01:14] LABS: Hematocrit 27 % (35-47); Hemoglobin 8.9 g/dl (12.0-16.0)
[2018-05-26] MEDS: Clindamycin 600 MG IVPREMIX(* 600 MG/50 ML SDV IV SCH ×2 (04:10→11:00)
[2018-05-26] MEDS: Acetaminophen TAB* 325 MG PO SCH ×3 (04:11→21:37)
[2018-05-26 06:36] LABS: Hematocrit 24 % (35-47); Mean Platelet Volume 7.1 fL (7.4-10.4); Platelet Count 167 10^3/ul (150-450)
[2018-05-26 06:41] LABS: INR 1.08 (0.77-1.02)
[2018-05-26 06:52] LABS: BUN/Creatinine Ratio 16.5 (8-20); Calcium 7.4 mg/dL (8.6-10.3); EGFR Non-African American 37.8 (>60); Magnesium 2.1 mg/dL (1.9-2.7); Potassium 4.8 mmol/L (3.5-5.0)
--- NOTE | 2018-05-26 07:17 | OP ---
OPERATIVE NOTE: DATE OF OPERATION: 05/25/18 DATE OF : 50 ATTENDING SURGEON: Radha Bai MD. JOB COACH: JOIE Brar. Leila Villanueva did help throughout the procedure with preparation of the leg, wound retraction, manipulation of the hip, and wound closure. ANESTHESIOLOGIST: Dr. Fatima. ANESTHESIA TYPE: Spinal. PRE-OP DIAGNOSIS: Severe end-stage degenerative osteoarthritis of the left hip joint. POST-OP DIAGNOSIS: Severe end-stage degenerative osteoarthritis of the left hip joint. OPERATIVE PROCEDURE: Left total hip arthroplasty. COMPLICATIONS: None. ESTIMATED BLOOD LOSS: 400 cc. SPECIMEN: Femoral head and acetabular reaming sent to pathology. HARDWARE USED: This is uncemented [place] total hip arthroplasty hardware. For the cup, a Tritanium cluster hole shell 50D single 20 mm screw was used. For the liner, a Trident X3 0-degree polyethylene liner 32D. For the stem, an Accolade II size 3 with a 127-degree neck angle. For the head, a Biolox delta ceramic V40 femoral head 32 +0. BRIEF HISTORY/INDICATION: Ms. Aparicio is a 67-year-old female with 6 months of severe left hip pain. Radiographs showed severe end-stage [id number] contact and arthritis. She failed conservative treatment with anti-inflammatories, activity modification, and home exercises. Due to continued pain and decreased quality of life, she elected to undergo a left total hip arthroplasty. Informed consent was obtained from the patient. She understood the risks of surgery included, but were not limited to bleeding, infection, damage to nearby structures, continued pain, need for further surgery, intraoperative fracture, nerve palsy, hardware failure or loosening, dislocation, leg-length discrepancy , stroke, heart attack, blood clot, and . She wished to proceed. INTRAOPERATIVE FINDINGS: Intraoperatively, the patient was noted to have severe end-stage arthritis. She had sclerotic thin bone around the entire superior and posterior acetabulum. She had extensive osteophyte formation. DESCRIPTION OF PROCEDURE: Ms. Aparicio was identified in the Preanesthesia Unit. Her left lower extremity was marked as the correct operative side. Informed consent was signed and placed in the chart. The patient was taken to the operating room and placed under spinal anesthesia. A Canseco catheter was placed. She was placed in the right lateral decubitus position on the peg board. All bony prominences were well padded. Left lower extremity was prepped and draped in the usual sterile fashion. Preop time-out was made to correctly identify the patient, side, and site. Appropriate perioperative antibiotics were given within 1 hour of incision. A standard posterior hip incision was made with a 10 blade and carried down to the lateral fascia layer. The lateral fascial layer was incised in line with the skin incision. A Charnley retractor was placed and the piriformis and conjoint tendons were identified. These were elevated off the posterolateral femur and tagged with #5 Ethibond. Next, electrocautery was used to make a standard posterolateral capsular flap and this was also tagged with #5 Ethibond. The hip was carefully dislocated. Lesser troch to center of the femoral head measured 58 mm. Oscillating saw was used to make the appropriate femoral neck cut and the femoral head was removed. The femur was retracted anteriorly. After appropriate placement of retractors, the acetabulum was well visualized. The acetabulum was carefully reamed up to a size 49. The 49 reamer obtained a bleeding subchondral bone bed. Acetabular bone had severe wear and was quite sclerotic. The posterior wall was extremely thin. Final implant chosen was a 49 trial; it had excellent fit and stability. Final implant chosen was a Tritanium cluster hole 50D acetabular cup. This was impacted into the acetabulum without difficulty. The liner was stable with appropriate anteversion and abduction angle. A single 20 mm screw was placed in the superoposterior quadrant for extra stability. Liner chosen was a Trident X3 0- degree liner 32D. This was impacted into the acetabular cup without difficulty. Next, attention was turned to preparation of the femoral canal. A canal finder was used to enter the proximal femur. The proximal femur was sequentially broached up to a size 3. A size 3 broach had good stability with appropriate anteversion. A 127 neck trial and a 32 +0 head trial was chosen. Lesser troch to center of the femoral head measured 58 mm. The hip was reduced and taken through a range of motion. The hip was stable in all positions. There was good soft tissue tension and appropriate leg lengths. All trials were removed. Final implant chosen was an Accolade II size 3 with a 127-degree neck angle. This implant was impacted into the femoral canal. The stem was stable with appropriate anteversion. A 32 +0 Biolox delta ceramic V40 femoral head was chosen. This was impacted onto the femoral neck. Lesser troch to center of the femoral head final measurement was 58 mm. The hip was reduced and taken through a range of motion. The hip was stable in all positions. There was good soft tissue tension and appropriate leg lengths. The wound was copiously irrigated with sterile saline. The previously tagged capsule and tendons were reapproximated to the posterolateral femur through 2 trochanteric drill holes. Lateral fascia layer was closed using interrupted #1 Vicryls. The rest of the incision was closed in a layered fashion using 0 and 2 -0 Vicryls. Skin was closed using running 3-0 Monocryl and Dermabond. Sterile Adaptic, 4x4s, and paper tape were used to cover the incision. The patient's anesthesia was reversed without difficulty. She was taken to the PACU in stable condition. Intended weightbearing will be weightbearing as tolerated. Intended DVT prophylaxis will be Eliquis. [id number]/[facility] #: [id number] HORTENC[place]
[2018-05-26] MEDS: Lactated Ringers 1000 ML Bag* 1,000 ML IV SCH (07:33)
--- NOTE | 2018-05-26 08:40 | PN ---
Progress Note - Progress Note Date of Service: 05/26/18 SOAP: Subjective: []Patient seen at bedside, eating breakfast, daughter present. She has a near syncopal event last evening and received fluid bolus. Feels slightly better this am overall but still slightly lightheaded. She denies SOB, CP or palpitations. Objective: [] Vital Signs Temp 98.2 F 05/26/18 07:20 Pulse 93 05/26/18 07:20 Resp 17 05/26/18 03:25 BP 93/58 05/26/18 07:37 Pulse Ox 95 05/26/18 07:20 Intake & Output 05/25/18 05/26/18 05/26/18 18:59 06:59 18:59 Intake Total 2550 2000 1090 Output Total 2600 1000 Balance -50 1000 1090 Weight 171 lb Intake: IV Fluids 2550 1000 980 CLINDAMYCIN 900 MG 50 LR 2500 500 980 NS (0.9%) 500 IVPB 110 ABX - CLINDAMYCIN 110 Oral 1000 Output: Canseco 1600 1000 Estimated Blood Loss 1000 Laboratory Results - last 24 hr 05/25/18 05/25/18 05/26/18 13:00 20:40 01:04 Hgb 11.2 L 9.5 L 8.9 L Hct 34 L 29 L 27 L Plt Count MPV INR (Anticoag Therapy) Sodium Potassium Chloride Carbon Dioxide Anion Gap BUN Creatinine Est GFR ( Amer) Est GFR (Non-Af Amer) BUN/Creatinine Ratio Glucose Calcium Magnesium 05/26/18 05/26/18 05/26/18 06:28 06:28 06:28 Hgb 8.0 L Hct 24 L Plt Count 167 MPV 7.1 L INR (Anticoag Therapy) 1.08 H Sodium 135 Potassium 4.8 Chloride 105 Carbon Dioxide 27 Anion Gap 3 BUN 23 Creatinine 1.39 H Est GFR ( Amer) 45.8 Est GFR (Non-Af Amer) 37.8 BUN/Creatinine Ratio 16.5 Glucose 155 H Calcium 7.4 L Magnesium 2.1 Left hip dressings are dry and intact Mild thigh edema but supple and minimally tender, no evidence of hematoma calf NT and soft +DF/PF left ankle sensation intact distally Assessment: []s/p Left total hip arthroplasty POD #1 Acute post operative anemia secondary to surgical blood loss- symptomatic Plan: []Transfuse 2 units PRBC, consent done PT after transfusion today Coumadin with Lovenox bridge, 6mg today Dressing change 05/27 Home in 1-2 days when stable medically and PT/OT goals mastered.
[2018-05-26] MEDS ORDERED: Diltiazem CD CAP* 120 MG PO SCH (09:00)
[2018-05-26] MEDS ORDERED: Diltiazem CD CAP* 180 MG PO SCH (09:00)
[2018-05-26] MEDS ORDERED: Losartan TAB* 25 MG PO SCH (09:00)
[2018-05-26] MEDS: BuPROPion XL* 300 MG TAB.XL PO SCH (09:17)
[2018-05-26] MEDS: ALPRAZOLAM 0.5 MG PO SCH ×3 (09:17→21:38)
[2018-05-26] MEDS: Hydroxychloroquine TAB* 200 MG PO SCH ×2 (09:18→21:38)
[2018-05-26] MEDS: Levothyroxine TAB* 150 MCG TAB PO SCH (09:18)
[2018-05-26] MEDS: Docusate CAP* 100 MG PO SCH ×2 (09:18→21:38)
[2018-05-26] MEDS: Omeprazole CAP* 20 MG PO SCH (09:19)
[2018-05-26] MEDS: Magnesium Hydroxide LIQ* 30 ML UDC PO SCH ×2 (09:19→21:41)
--- NOTE | 2018-05-26 09:39 | PN ---
Subjective Date of Service: 05/26/18 Interval History: pt reports she feels better this morning, has occasional lightheadedness with certain movements. Reports good appetite. No nausea. Reports pain is controlled. Objective Active Medications: Acetaminophen (Tylenol Tab*) 975 mg PO Q8H [facility] Last Admin: 05/26/18 04:11 Dose: 975 mg Alprazolam (Xanax Tab*) 0.5 mg PO TID [facility] Last Admin: 05/26/18 09:17 Dose: 0.5 mg Bisacodyl (Dulcolax Supp*) 10 mg OH DAILY PRN PRN Reason: constipation Bupropion HCl (Bupropion Xl*) 300 mg PO QAM [facility]; Protocol Last Admin: 05/26/18 09:17 Dose: 300 mg Cyclobenzaprine HCl (Flexeril Tab*) 10 mg PO TID PRN PRN Reason: SPASMS Diphenhydramine HCl (Benadryl Iv*) 12.5 mg IV Q6H PRN PRN Reason: PRURITIS Docusate Sodium (Colace Cap*) 100 mg PO BID [facility] Last Admin: 05/26/18 09:18 Dose: 100 mg Enoxaparin Sodium (Lovenox(*)) 40 mg SUBCUT Q24H [facility] Hydroxychloroquine Sulfate (Plaquenil Tab*) 200 mg PO BID [facility] Last Admin: 05/26/18 09:18 Dose: 200 mg Clindamycin HCl/Dextrose (Cleocin 600 Mg Ivpremix(*) Sdv) 600 mg in 50 mls @ 100 mls/hr IV Q8H [facility] Stop: 05/26/18 12:29 Last Admin: 05/26/18 04:10 Dose: 100 mls/hr Lactated Ringer's (Lactated Ringers 1000 Ml Bag*) 1,000 mls @ 100 mls/hr IV PER RATE [facility] Last Admin: 05/26/18 07:33 Dose: 100 mls/hr Lactulose (Lactulose*) 30 ml PO Q6H PRN PRN Reason: constipation Levothyroxine Sodium (Synthroid Tab*) 150 mcg PO QAM [facility] Last Admin: 05/26/18 09:18 Dose: 150 mcg Magnesium Hydroxide (Milk Of Magnesia Liq*) 30 ml PO BID [facility] Last Admin: 05/26/18 09:19 Dose: 30 ml Magnesium Hydroxide (Milk Of Magnesia Liq*) 30 ml PO Q6H PRN PRN Reason: constipation Morphine Sulfate (Morphine Vial*) 2 mg IV Q2H PRN PRN Reason: PAIN Omeprazole (Prilosec Cap*) 40 mg PO QAM [facility] Last Admin: 05/26/18 09:19 Dose: 40 mg Ondansetron HCl (Zofran Inj*) 4 mg IV Q6H PRN PRN Reason: nausea Ondansetron HCl (Zofran Tab*) 4 mg PO Q6H PRN PRN Reason: NAUSEA Oxycodone HCl (Roxycodone Tab*) 10 mg PO Q4H PRN PRN Reason: SEVERE PAIN Oxycodone/Acetaminophen (Percocet 5/325 Tab*) 1 tab PO Q4H PRN PRN Reason: PAIN Oxycodone/Acetaminophen (Percocet 5/325 Tab*) 2 tab PO Q4H PRN PRN Reason: PAIN Last Admin: 05/25/18 20:00 Dose: 2 tab Pharmacy Profile Note (Coumadin Daily Reminder*) 1 note FOLLOW UP 1700 [facility] Last Admin: 05/25/18 18:50 Dose: 1 note Polyethylene Glycol/Electrolytes (Miralax*) 17 gm PO DAILY PRN PRN Reason: Constipation Ropinirole HCl (Requip Tab*) 1 mg PO TID PRN PRN Reason: RESTLESS LEG Tramadol HCl (Ultram*) 50 mg PO Q6H PRN PRN Reason: PAIN Warfarin Sodium (Coumadin Tab(*)) 6 mg PO ONCE@1700 [facility]; Protocol Stop: 05/26/18 17:01 Vital Signs - 8 hr 05/26/18 05/26/18 05/26/18 03:25 04:06 05:17 Temperature 99.1 F Pulse Rate 71 73 Respiratory 17 Rate Blood Pressure 88/43 90/46 (mmHg) O2 Sat by Pulse 93 93 Oximetry 05/26/18 05/26/18 05/26/18 07:20 07:37 09:17 Temperature 98.2 F Pulse Rate 93 Respiratory 16 Rate Blood Pressure 93/58 (mmHg) O2 Sat by Pulse 95 Oximetry Oxygen Devices in Use Now: None Appearance: 67 yo female sitting up in bed A+Ox3 visiting with daughter in NAD Eyes: No Scleral Icterus, PERRLA Ears/Nose/Mouth/Throat: NL Teeth, Lips, Gums, Mucous Membranes Moist Neck: NL Appearance and Movements; NL JVP Respiratory: Symmetrical Chest Expansion and Respiratory Effort, Clear to Auscultation Cardiovascular: NL Sounds; No Murmurs; No JVD, RRR, No Edema Abdominal: NL Sounds; No Tenderness; No Distention Extremities: No Edema, - - Left hip dressing CD+I - no drainage, no hematoma noted Neurological: Alert and Oriented x 3, NL Muscle Strength and Tone Lines/Tubes/Other Access: Clean, Dry and Intact Peripheral IV Nutrition: Taking PO's Result Diagrams: 05/26/18 06:28 05/26/18 06:28 Assess/Plan/Problems-Billing Assessment: 67 yo female with a PMH of RA, Lupus, hypothyroidism, HTN, anxiety/ depression who underwent an elective left total hip arthroplasty with Dr. Bai on 05/25. [facility] medicine co-medical management. - Patient Problems (1) Status post total hip replacement, left Comment: - Dipso per Dr. Coronel Ortho Team - Post-op anemia, symptomatic with dizziness/syncopal episode during the night. 2 units PRBCs ordered. No signs of hematoma. Continue to monitor HH Q6hrs - Pain management. Bowel regimen - PT/OT (2) HTN (hypertension) Comment: - hold home medications d/t hypovolemia - some hypotention post-op - recieved several fluid boluses, now blood pressures stable but soft. Plan for 2 units PRBCS. (3) Rheumatoid arthritis Comment: - with hx of Lupus - continue plaquenil. Methotrexate weekly (4) Depression with anxiety Comment: -significant anxiety - continue home medications xanax, wellbutrin, Vibryd - supportive treatment (5) Hypothyroid Comment: - continue synthroid (6) Patient is full code Comment: (7) DVT prophylaxis Comment: lovenox Q24. Coumadin started post-op day 0. Monitor INR daily. INR today: 1.08 Status and Disposition: inpatient
[2018-05-26] MEDS: Cyclobenzaprine TAB* 10 MG PO PRN ×2 (11:49→17:06)
[2018-05-26] MEDS: Enoxaparin(*) 40 MG/0.4 ML SYR SUBCUT SCH (11:52)
[2018-05-26] MEDS: rOPINIRole TAB* 1 MG PO PRN ×2 (12:57→21:38)
[2018-05-26] MEDS: CMC:Vilazodone (NF) 40 MG TAB PO SCH (12:58)
[2018-05-26] MEDS ORDERED: Warfarin TAB(*) 6 MG PO SCH (17:00)
[2018-05-26 19:06] LABS: Hematocrit 31 % (35-47); Hemoglobin 10.3 g/dl (12.0-16.0)
[2018-05-27] MEDS: Acetaminophen TAB* 325 MG PO SCH ×3 (04:09→20:43)
[2018-05-27 05:33] LABS: ABS Basophils 0 10^3/ul (0-0.2); ABS Eosinophils 0 10^3/ul (0-0.6); ABS Lymphocytes 1.2 10^3/ul (1.0-4.8); ABS Monocytes 0.7 10^3/ul (0-0.8); ABS Neutrophils 6.7 10^3/ul (1.5-7.7); ABS Nucleated RBC 0 10^3/ul; Eosinophil % 0.2 %; Hematocrit 30 % (35-47); Hemoglobin 10.2 g/dl (12.0-16.0); Lymphocyte % 13.5 %; Mean Corpuscular HGB Conc 34 g/dl (31-36); Mean Corpuscular Hemoglobin 30 pg (27-31); Mean Corpuscular Volume 89 fL (80-97); Mean Platelet Volume 7.6 fL (7.4-10.4); Nucleated Red Blood Cells % 0; Platelet Count 161 10^3/ul (150-450); Red Blood Count 3.35 10^6/ul (4.00-5.40); Red Cell Distribution Width 15 % (10.5-15); White Blood Count 8.6 10^3/ul (3.5-10.8)
[2018-05-27 05:44] LABS: INR 2.16 (0.77-1.02)
[2018-05-27 05:49] LABS: BUN/Creatinine Ratio 17.6 (8-20); Calcium 7.6 mg/dL (8.6-10.3); EGFR Non-African American 54.1 (>60); Potassium 4.3 mmol/L (3.5-5.0)
--- NOTE | 2018-05-27 07:58 | PN ---
Progress Note - Progress Note Date of Service: 05/27/18 SOAP: Subjective: []Patient seen OOB in chair. Color much improved. Feeling much better today after receiving 2 units blood yesterday. Pain well managed. She denies dizziness upon getting up today, denies SOB, CP, nausea or vomiting. Objective: [] Vital Signs Temp 99.1 F 05/27/18 03:26 Pulse 100 05/27/18 03:26 Resp 16 05/27/18 03:26 BP 117/55 05/27/18 03:26 Pulse Ox 92 05/27/18 03:26 Intake & Output 05/26/18 05/27/18 05/27/18 18:59 06:59 18:59 Intake Total 1712 1000 110 Output Total 500 400 200 Balance 1212 600 -90 Intake: IV Fluids 980 LR 980 IVPB 110 ABX - CLINDAMYCIN 110 Oral 50 1000 110 Packed Cells 572 Output: Urine 500 400 200 Other: Date of Last Bowel 05/27/18 Movement # Bowel Movements 1 1 Estimated Stool Amount Small Small Laboratory Results - last 24 hr 05/26/18 05/26/18 05/27/18 06:28 18:57 05:26 WBC 8.6 RBC 3.35 L Hgb 10.3 L 10.2 L Hct 31 L 30 L MCV 89 MCH 30 MCHC 34 RDW 15 Plt Count 161 MPV 7.6 Neut % (Auto) 77.8 Lymph % (Auto) 13.5 [place] % (Auto) 8.1 Eos % (Auto) 0.2 Baso % (Auto) 0.4 Absolute Neuts (auto) 6.7 Absolute Lymphs (auto) 1.2 Absolute Monos (auto) 0.7 Absolute Eos (auto) 0 Absolute Basos (auto) 0 Absolute Nucleated RBC 0 Nucleated RBC % 0 INR (Anticoag Therapy) Sodium Potassium Chloride Carbon Dioxide Anion Gap BUN Creatinine Est GFR ( Amer) Est GFR (Non-Af Amer) BUN/Creatinine Ratio Glucose Calcium Blood Type O Negative Antibody Screen Negative Crossmatch See Detail 05/27/18 05/27/18 05:26 05:26 WBC RBC Hgb Hct MCV MCH MCHC RDW Plt Count MPV Neut % (Auto) Lymph % (Auto) [place] % (Auto) Eos % (Auto) Baso % (Auto) Absolute Neuts (auto) Absolute Lymphs (auto) Absolute Monos (auto) Absolute Eos (auto) Absolute Basos (auto) Absolute Nucleated RBC Nucleated RBC % INR (Anticoag Therapy) 2.16 H Sodium 139 Potassium 4.3 Chloride 108 Carbon Dioxide 29 Anion Gap 2 BUN 18 Creatinine 1.02 H Est GFR ( Amer) 65.4 Est GFR (Non-Af Amer) 54.1 BUN/Creatinine Ratio 17.6 Glucose 120 H Calcium 7.6 L Blood Type Antibody Screen Crossmatch left hip dressings remain intact-no thigh hematoma, incision benign without drainage, new 4x4s and tape applied. calf NT and soft +DF/Pf left ankle sensation intact distally Assessment: []s/p left total hip arthroplasty POD #3 Plan: []PT/OT- WBAT LLE, has not had much therapy to date due to symptomatic post op anemia Coumadin with Lovenox bridge- 2 mg today discharge home tomorrow
[2018-05-27] MEDS: Magnesium Hydroxide LIQ* 30 ML UDC PO SCH ×2 (09:12→20:44)
[2018-05-27] MEDS: CMC:Vilazodone (NF) 40 MG TAB PO SCH (09:14)
[2018-05-27] MEDS: Hydroxychloroquine TAB* 200 MG PO SCH ×2 (09:14→20:43)
[2018-05-27] MEDS: Levothyroxine TAB* 150 MCG TAB PO SCH (09:15)
[2018-05-27] MEDS: oxyCODONE/Acetamin 5/325 MG* TAB PO PRN (09:15)
[2018-05-27] MEDS: Docusate CAP* 100 MG PO SCH ×2 (09:15→20:43)
[2018-05-27] MEDS: ALPRAZOLAM 0.5 MG PO SCH ×3 (09:15→20:43)
[2018-05-27] MEDS: Omeprazole CAP* 20 MG PO SCH (09:15)
[2018-05-27] MEDS: BuPROPion XL* 300 MG TAB.XL PO SCH (09:20)
--- NOTE | 2018-05-27 12:08 | PN ---
Subjective Date of Service: 05/27/18 Interval History: pt reports she feels much better today - pain is better controlled rating her hip pain 3/10. Dizziness has resolved. reports good appetite. No N/V/D. Reports normal BM this am. No fevers/chills. Denies CP/SOB. feels that her anxiety is better today daughter at bedside. Objective Active Medications: Acetaminophen (Tylenol Tab*) 975 mg PO Q8H [facility] Last Admin: 05/27/18 04:09 Dose: 975 mg Alprazolam (Xanax Tab*) 0.5 mg PO TID [facility] Last Admin: 05/27/18 09:15 Dose: 0.5 mg Bisacodyl (Dulcolax Supp*) 10 mg ID DAILY PRN PRN Reason: constipation Bupropion HCl (Bupropion Xl*) 300 mg PO QAM [facility]; Protocol Last Admin: 05/27/18 09:20 Dose: 300 mg Cyclobenzaprine HCl (Flexeril Tab*) 10 mg PO TID PRN PRN Reason: SPASMS Last Admin: 05/26/18 17:06 Dose: 10 mg Diphenhydramine HCl (Benadryl Iv*) 12.5 mg IV Q6H PRN PRN Reason: PRURITIS Docusate Sodium (Colace Cap*) 100 mg PO BID [facility] Last Admin: 05/27/18 09:15 Dose: 100 mg Enoxaparin Sodium (Lovenox(*)) 40 mg SUBCUT Q24H [facility] Last Admin: 05/26/18 11:52 Dose: 40 mg Hydroxychloroquine Sulfate (Plaquenil Tab*) 200 mg PO BID [facility] Last Admin: 05/27/18 09:14 Dose: 200 mg Lactated Ringer's (Lactated Ringers 1000 Ml Bag*) 1,000 mls @ 100 mls/hr IV PER RATE [facility] Last Admin: 05/26/18 07:33 Dose: 100 mls/hr Lactulose (Lactulose*) 30 ml PO Q6H PRN PRN Reason: constipation Levothyroxine Sodium (Synthroid Tab*) 150 mcg PO QAM [facility] Last Admin: 05/27/18 09:15 Dose: 150 mcg Magnesium Hydroxide (Milk Of Magnesia Liq*) 30 ml PO BID [facility] Last Admin: 12/23/18 09:12 Dose: Not Given Magnesium Hydroxide (Milk Of Magnesia Liq*) 30 ml PO Q6H PRN PRN Reason: constipation Morphine Sulfate (Morphine Vial*) 2 mg IV Q2H PRN PRN Reason: PAIN Omeprazole (Prilosec Cap*) 40 mg PO QAM [facility] Last Admin: 05/27/18 09:15 Dose: 40 mg Ondansetron HCl (Zofran Inj*) 4 mg IV Q6H PRN PRN Reason: nausea Ondansetron HCl (Zofran Tab*) 4 mg PO Q6H PRN PRN Reason: NAUSEA Oxycodone HCl (Roxycodone Tab*) 10 mg PO Q4H PRN PRN Reason: SEVERE PAIN Oxycodone/Acetaminophen (Percocet 5/325 Tab*) 1 tab PO Q4H PRN PRN Reason: PAIN Last Admin: 05/27/18 09:15 Dose: 1 tab Oxycodone/Acetaminophen (Percocet 5/325 Tab*) 2 tab PO Q4H PRN PRN Reason: PAIN Last Admin: 05/25/18 20:00 Dose: 2 tab Pharmacy Profile Note (Coumadin Daily Reminder*) 1 note FOLLOW UP 1700 [facility] Last Admin: 05/26/18 17:07 Dose: 1 note Polyethylene Glycol/Electrolytes (Miralax*) 17 gm PO DAILY PRN PRN Reason: Constipation Ropinirole HCl (Requip Tab*) 1 mg PO TID PRN PRN Reason: RESTLESS LEG Last Admin: 05/26/18 21:38 Dose: 1 mg Tramadol HCl (Ultram*) 50 mg PO Q6H PRN PRN Reason: PAIN [facility]azodone [facility] ([facility] (Nf)) [facility] [place] Last Admin: 05/27/18 09:14 Dose: 20 mg Warfarin Sodium (Coumadin Tab(*)) 2 mg PO ONCE@1700 NR; Protocol Stop: 05/27/18 23:59 Vital Signs - 8 hr 05/27/18 05/27/18 05/27/18 07:36 08:00 09:15 Temperature 98.4 F Pulse Rate 95 Respiratory 14 16 16 Rate Blood Pressure 107/49 (mmHg) O2 Sat by Pulse 94 Oximetry Oxygen Devices in Use Now: None Appearance: 67 yo female A+Ox3 in NAD Eyes: No Scleral Icterus Ears/Nose/Mouth/Throat: NL Teeth, Lips, Gums, Mucous Membranes Moist Respiratory: Symmetrical Chest Expansion and Respiratory Effort, Clear to Auscultation Cardiovascular: NL Sounds; No Murmurs; No JVD, RRR, No Edema Abdominal: NL Sounds; No Tenderness; No Distention Extremities: No Edema, No Clubbing, Cyanosis Skin: No Rash or Ulcers, - - left hip dressing CD+I Neurological: Alert and Oriented x 3, NL Sensation, NL Muscle Strength and Tone Lines/Tubes/Other Access: Clean, Dry and Intact Peripheral IV Nutrition: Taking PO's Result Diagrams: 05/27/18 05:26 05/27/18 05:26 Assess/Plan/Problems-Billing Assessment: 67 yo female with a PMH of RA, Lupus, hypothyroidism, HTN, anxiety/ depression who underwent an elective left total hip arthroplasty with Dr. Bai on 05/25. [facility] medicine co-medical management. - Patient Problems (1) Status post total hip replacement, left Comment: - Dipso per Dr. Coronel Ortho Team - POD#2 - Post-op anemia 2/2 to intraopertaive blood loss, was symptomatic with dizziness/syncopal episode post-op recieved 2 units PRBCs 05/26. Improving overall - HH stable - Pain management. Bowel regimen - PT/OT - monitor CBC daily (2) HTN (hypertension) Comment: - hold home medications d/t soft BPs - (losartan, cardizem) (3) Rheumatoid arthritis Comment: - with hx of Lupus - continue plaquenil. Methotrexate weekly (4) Depression with anxiety Comment: -significant anxiety - continue home medications xanax, wellbutrin, Vibryd - supportive treatment (5) Hypothyroid Comment: - continue synthroid (6) Patient is full code Comment: (7) DVT prophylaxis Comment: lovenox to coumadin bridge - INR today: 2.16 DC lovenox, continue coumadin Status and Disposition: inpatient. Per Ortho tentative Plan for DC to home tomorrow.
[2018-05-27] MEDS: Enoxaparin(*) 40 MG/0.4 ML SYR SUBCUT SCH (12:26)
[2018-05-27] MEDS: rOPINIRole TAB* 1 MG PO PRN ×2 (12:29→20:43)
[2018-05-27] MEDS ORDERED: Warfarin TAB(*) 2 MG PO NR (17:00)
[2018-05-28] MEDS ORDERED: Melatonin 3 MG TAB PO PRN (00:55)
[2018-05-28] MEDS: Acetaminophen TAB* 325 MG PO SCH ×2 (03:46→12:23)
[2018-05-28] MEDS: oxyCODONE/Acetamin 5/325 MG* TAB PO PRN ×2 (05:36→11:24)
[2018-05-28 05:50] LABS: Hematocrit 30 % (35-47); Mean Platelet Volume 7.3 fL (7.4-10.4); Platelet Count 169 10^3/ul (150-450)
[2018-05-28 05:54] LABS: INR 3.9 (0.77-1.02)
[2018-05-28 06:07] LABS: Calcium 7.6 mg/dL (8.6-10.3); EGFR Non-African American 59.4 (>60); Potassium 3.9 mmol/L (3.5-5.0)
[2018-05-28] MEDS: Magnesium Hydroxide LIQ* 30 ML UDC PO SCH (08:26)
[2018-05-28] MEDS: Hydroxychloroquine TAB* 200 MG PO SCH (08:27)
[2018-05-28] MEDS: Levothyroxine TAB* 150 MCG TAB PO SCH (08:27)
[2018-05-28] MEDS: Docusate CAP* 100 MG PO SCH (08:28)
[2018-05-28] MEDS: BuPROPion XL* 300 MG TAB.XL PO SCH (08:28)
[2018-05-28] MEDS: ALPRAZOLAM 0.5 MG PO SCH (08:28)
[2018-05-28] MEDS: CMC:Vilazodone (NF) 40 MG TAB PO SCH (08:29)
[2018-05-28] MEDS: Omeprazole CAP* 20 MG PO SCH (08:29)
--- NOTE | 2018-05-28 09:23 | PN ---
Progress Note - Progress Note Date of Service: 05/28/18 SOAP: Subjective: []Patient seen at bedside. Daughter present. Continues to feel well. Denies dizziness, SOB, CP N/V. Feels she can go home later today after therapy and mastery of stairs. Objective: [] Vital Signs Temp 98.1 F 05/28/18 07:16 Pulse 85 05/28/18 07:16 Resp 16 05/28/18 08:32 BP 100/60 05/28/18 07:20 Pulse Ox 96 05/28/18 07:16 Intake & Output 05/27/18 05/28/18 05/28/18 18:59 06:59 18:59 Intake Total 710 750 Output Total 200 0 Balance 510 750 Intake: Oral 710 750 Output: Urine 200 0 Other: Estimated Void Medium Medium # Bowel Movements 1 Estimated Stool Amount Small # Voids 1 1 Laboratory Results - last 24 hr 05/28/18 05/28/18 05/28/18 05:40 05:40 05:40 Hgb 10.0 L Hct 30 L Plt Count 169 MPV 7.3 L INR (Anticoag Therapy) 3.90 H Sodium 140 Potassium 3.9 Chloride 108 Carbon Dioxide 27 Anion Gap 5 BUN 15 Creatinine 0.94 Est GFR ( Amer) 71.9 Est GFR (Non-Af Amer) 59.4 BUN/Creatinine Ratio 16.0 Glucose 119 H Calcium 7.6 L Left hip dressing dry, thigh with some generalized edema but soft and non tender calf NT and soft +DF/PF left ankle sensation remains intact distally Assessment: []s/p Left total hip arthroplasty POD #3 Plan: []PT, stairs today Discharge home this afternoon Coumadin for DVT prophylaxis, INR up to 3.9, so will hold Coumadin for the next 2 days, recheck INR 05/30 w VNS follow up with Dr. Bai in 10-14 days as scheduled.
[2018-05-28 11:22] VITALS: BP 102/60
--- NOTE | 2018-05-28 16:27 | DS ---
AMENDED REPORT NOW INCLUDES DESIGNATED COSIGNER DISCHARGE SUMMARY: DATE OF ADMISSION: 05/25/18 DATE OF DISCHARGE: 05/28/18 ATTENDING PHYSICIAN: Dr. Radha Bai.* (DICTATED BY JOIE EDUARDO) ADMISSION DIAGNOSIS: Severe end-stage degenerative osteoarthritis of the left hip joint. DISCHARGE DIAGNOSES: 1. Severe end-stage degenerative osteoarthritis of the left hip joint. 2. Acute postoperative anemia secondary to surgical blood loss. SURGERY PERFORMED: Left total hip arthroplasty. HOSPITAL COURSE: The patient is a 67-year-old female with 6 months of severe left hip pain. Her plain films revealed [id number] degenerative arthritis. She failed conservative management with anti-inflammatories, activity modification, and home exercises. Due to continued pain and decreased quality of life, she elected to proceed with surgical intervention. She was taken to the operating room under the care of Dr. Radha Bai on the date of 05/25/18 for the aforementioned procedure. She tolerated the procedure well and left the operating room in stable condition. On the evening of her surgery, she felt lightheaded which necessitated a CAT call and evaluation by the medical service. She did receive fluid bolus and felt better with improvement of her blood pressure. Postoperative day #1, she was anemic and still felt slightly symptomatic therefore, 2 units of packed red blood cells were transfused on . Her hemoglobin and hematocrit levels improved significantly as well as her symptoms. She had no further difficulties with hypotension or dizziness. She progressed satisfactorily with her physical therapy and occupational therapy goals, bearing weight as tolerated on the left lower extremity. It was felt that she was medically and orthopedically stable for discharge to home on the date of 05/28/18. CONDITION ON DISCHARGE: Temperature 98.1, pulse 85, respiratory rate 16, O2 sat is 96% on room air, BP 100/60. Her left hip incision is healing well without drainage or evidence of infection. Her thigh is soft with mild edema. There is no ecchymosis or evidence of hematoma. Her calf is soft and nontender. She has active dorsiflexion of the left ankle and her sensation and circulation are intact distally. PLAN: Discharged to home 05/28/18 with VNS. She will continue on Coumadin for her DVT prophylaxis. Her INR is slightly elevated at 3.9 today, 05/28/18. She will not take any Coumadin for the next 2 days and will have repeat VNS, blood draw on 05/31/18 with dosages to follow. She was provided with a small prescription of Percocet as she is using narcotics very sparingly. Percocet 5/ 325 one p.o. q.4 hours p.r.n. pain, #20, 0 refills also provided. Both medications ordered through [id number]. She will follow up in the office as scheduled with Dr. Bai in roughly 10 to 14 days. All questions were answered. JOIE EDUARDO [id number]/[facility] #: [id number] HORT[facility]
== END 2018-05-28 13:30 | disposition home health service (06) | DRG 470 ==
LOC: AA 08:02 → SSU 11:49
PROVIDERS: ADMIT Orthopaedic Surgery Adult Reconstructive Orthopaedic Surgery; ATTEND Orthopaedic Surgery Adult Reconstructive Orthopaedic Surgery
PROC: 0SRB04A Replacement of Left Hip Joint with Ceramic on Polyethylene Synthetic Substitute, Uncemented, Open Approach (ICD-10-PCS; 2018-05-25)
PROC: 30233N1 Transfusion of Nonautologous Red Blood Cells into Peripheral Vein, Percutaneous Approach (ICD-10-PCS; principal; 2018-05-26)
DX: M16.0 Bilateral primary osteoarthritis of hip (principal); D62 Acute posthemorrhagic anemia; R42 Dizziness and giddiness; M32.9 Systemic lupus erythematosus, unspecified; F33.1 Major depressive disorder, recurrent, moderate; I10 Essential (primary) hypertension; E89.0 Postprocedural hypothyroidism; M62.838 Other muscle spasm; M81.0 Age-related osteoporosis without current pathological fracture; I08.3 Combined rheumatic disorders of mitral, aortic and tricuspid valves; E78.00 Pure hypercholesterolemia, unspecified; I11.9 Hypertensive heart disease without heart failure; I65.23 Occlusion and stenosis of bilateral carotid arteries; G47.33 Obstructive sleep apnea (adult) (pediatric); M54.17 Radiculopathy, lumbosacral region; M05.79 Rheumatoid arthritis with rheumatoid factor of multiple sites without organ or systems involvement; F51.05 Insomnia due to other mental disorder; F41.1 Generalized anxiety disorder; G25.81 Restless legs syndrome; M17.11 Unilateral primary osteoarthritis, right knee; M85.80 Other specified disorders of bone density and structure, unspecified site; M35.00 Sjogren syndrome, unspecified; M25.752 Osteophyte, left hip; Z91.81 History of falling; Z88.0 Allergy status to penicillin; Z82.49 Family history of ischemic heart disease and other diseases of the circulatory system; Z82.61 Family history of arthritis
CPT/HCPCS: 36415; 80048; 83735; 85014; 85018; 85025; 85049; 85610; 86850; 86900; 86901; 86922; A9270-GY; G8978-GP-CL; G8979-GP-CI; G8987-GO-CJ; G8988-GO-CI; J1100; J1170; J1650; J2250; J2405; J2704; J3010; P9040

== ENCOUNTER 2024-01-18 06:19 | Observation (INO) ==
[~2024-01-18 06:19] MED LIST changes: -Buffered Lidocaine 0.9% SYRIN* 5 ML/SYR SYRINGE INTRADERM ONE; -Lactated Ringers 1000 ML Bag* 1,000 ML IV SCH; +NS 0.45% 1000 ml BAG 1,000 ML IV SCH; +Naloxone 0.4 mg VIAL 0.4 mg/ml 1 ml VIAL IV PRN; +Ondansetron 4 mg VIAL 2 MG/ML 2 ml VIAL IV PRN; +fentaNYL 100 mcg/2 ml 50 MCG/ML VIAL IV PRN
[2024-01-18 07:26] LABS: Rapid COVID-19 Molecular Undetected (Undetected)
[2024-01-18] MEDS ORDERED: ceFAZolin 2 GM PREMIX 2 GM/50 ML BAG ONE (07:38)
[2024-01-18] MEDS ORDERED: Tranexamic Acid 1 GM/100ML BAG 2,000 MG/200 ML BAG IV ONE (07:38)
[2024-01-18] MEDS: Lactated Ringers 1000 ml BAG 1,000 ML IV SCH ×2 (08:03→17:07)
[2024-01-18] MEDS: Buffered Lidocaine 1% SYRIN 1 ml INTRADERM ONE (08:03)
[2024-01-18] MEDS: Scopolamine 1 mg/72hr PATCH TRANSDERM ONE (08:03)
[2024-01-18] MEDS ORDERED: ROPIVACAINE 5 MG/ML 30 ML BTL (0.5%) ONE (10:08)
[2024-01-18] MEDS ORDERED: Midazolam 2 mg/2 ml VIAL 1 mg/ml 2 ml VIAL (2 mg) ONE (11:23)
[2024-01-18] MEDS ORDERED: Phenylephrine IV 10 MG/ML 1 ml VIAL ONE (11:27)
[2024-01-18] MEDS ORDERED: Lidocaine 2% PF 5 ML VIAL ONE (11:34)
[2024-01-18] MEDS ORDERED: Dexamethasone IV 4 MG/ML VIAL 1 ml VIAL ONE (12:40)
[2024-01-18] MEDS ORDERED: Ondansetron 4 mg VIAL 2 MG/ML 2 ml VIAL ONE (12:40)
[2024-01-18] MEDS ORDERED: Glycopyrrolate IV 0.2 MG/ML 1 ML VIAL ONE (12:51)
[2024-01-18] MEDS ORDERED: Propofol 10 MG/ML 20 ML BTL ONE ×2 (13:12)
[2024-01-18] MEDS ORDERED: Morphine 2 MG/ML SYRINGE IV PRN (13:30)
[2024-01-18] MEDS ORDERED: Ondansetron ODT 4 mg TAB 4 MG TAB PO PRN (13:30)
[2024-01-18] MEDS ORDERED: Lactulose 30 ml UDC PO PRN (13:30)
[2024-01-18] MEDS ORDERED: Magnesium Hydroxide LIQ 30 ML UDC PO PRN (13:30)
[2024-01-18] MEDS ORDERED: Calcium Carb (TUMS) 500 mg CHEW TAB PO PRN (13:30)
[2024-01-18] MEDS ORDERED: Ondansetron 4 mg VIAL 2 MG/ML 2 ml VIAL IV PRN (13:30)
[2024-01-18] MEDS: Acetaminophen IV 1 GM/100ML 1,000 MG/100 ML BAG IV ONE (17:06)
[2024-01-18] MEDS: Magnesium Hydroxide LIQ 30 ML UDC PO SCH (20:33)
[2024-01-18] MEDS: ceFAZolin 2 GM PREMIX 2 GM/50 ML BAG IVPB SCH (20:39)
[2024-01-19 06:46] LABS: Hematocrit 31.2 % (35-45); Hemoglobin 10.4 g/dL (11.5-14.3); Mean Platelet Volume 7.1 fL (7.5-11.2); Platelet Count 244 10^3/uL (150-450)
[2024-01-19 07:05] LABS: Calcium 7.6 mg/dL (8.6-10.3); Creatinine, Serum 1.52 mg/dL (0.51-0.95); Potassium 4.4 mmol/L (3.5-5.0)
[2024-01-19] MEDS: Vortioxetine 10 mg TAB (NF) PO SCH (08:48)
[2024-01-19] MEDS: Vitamin THERAPEUTIC TAB PO SCH (08:51)
[2024-01-19 10:21] VITALS: BP 118/50
== END 2024-01-19 13:30 | disposition home or self-care (01) ==
LOC: AA 06:19 → INTOOBSV 06:19 → SSU 13:30
PROVIDERS: ADMIT Orthopaedic Surgery Adult Reconstructive Orthopaedic Surgery; ATTEND Orthopaedic Surgery Adult Reconstructive Orthopaedic Surgery